=== PATIENT | male | born 1930 | race Caucasian/White ===

== ENCOUNTER 2017-02-22 12:39 | Inpatient (IN) | payer MEDICARE, OTHER ==
[2017-02-22] VITALS (13 sets, daily range): BP systolic 113–165; BP diastolic 41–121; PULSE 40–91; RESP 17–22; TEMP 97.2; Ht 160 cm; Wt 78.8 kg
[~2017-02-22] VITALS: Ht 160 cm; Wt 78.8 kg
[~2017-02-22 12:39] MED LIST: CARV3.1260 PO; CLON-379 PO; CLOP75TA19 PO; FERR-55 PO; ISOS30TA18 PO; LINA290C PO; LOSA50TA2 PO; METF500T4 PO; MEVA40 PO; NORC 5-325 PO; SITA100T8 PO; TERA10CA42 PO
[2017-02-22] MEDS ORDERED: ONDANSETRON 4 MG INJ ONE (12:43)
[2017-02-22] MEDS ORDERED: ONDANSETRON 4 MG INJ IV STA ×2 (12:47→14:08)
[2017-02-22] MEDS ORDERED: SOD CHLORIDE 0.9% 500 ML IV STA ×2 (12:56→14:16)
[2017-02-22] MEDS ORDERED: ASPIRIN 81 MG TAB PO ONE (13:00)
[2017-02-22] MEDS ORDERED: ATROPINE 1 MG INJ IV ONE ×2 (13:00→13:30)
[2017-02-22 13:08] LABS: ADD SCAN DIFF NO
[2017-02-22 13:11] LABS: BASOPHILS % 0.5 % (0.0-2.0); EOSINOPHILS # 0.2 10^3/ul (0.0-0.5); EOSINOPHILS % 2.4 % (0.0-7.0); HEMATOCRIT 26.7 % (42.0-52.0); HEMOGLOBIN 8.1 g/dl (14.0-18.0); LYMPHOCYTES # 3.3 10^3/ul (0.8-2.9); MEAN CORPUSCULAR HEMOGLOBIN 31.9 pg (29.0-33.0); MEAN CORPUSCULAR HGB CONC 30.3 g/dl (32.0-37.0); MEAN CORPUSCULAR VOLUME 105.1 fl (82.0-101.0); MEAN PLATELET VOLUME 12.1 fl (7.4-10.4); MONOCYTE # 0.6 10^3/ul (0.3-0.9); MONOCYTES % 8.2 % (0.0-11.0); NEUTROPHIL # 3.5 10^3/ul (1.6-7.5); NEUTROPHILS % 45.6 % (39.0-77.0); PLATELET COUNT 155 10^3/UL (140-415); RED BLOOD COUNT 2.54 10^6/ul (4.70-6.10); RED CELL DISTRIBUTION WIDTH 16.7 % (11.5-14.5); WHITE BLOOD COUNT 7.6 10^3/ul (4.8-10.8)
[2017-02-22] MEDS ORDERED: GLUCAGON 1 MG INJ IV STA (13:15)
[2017-02-22] MEDS ORDERED: GLUCAGON 1 MG INJ ONE (13:15)
[2017-02-22] MEDS ORDERED: ALLO300T2 PO (13:23)
[2017-02-22] MEDS ORDERED: METO5TAB11 PO (13:23)
[2017-02-22] MEDS ORDERED: FAMO40TA52 PO (13:24)
[2017-02-22] MEDS ORDERED: AMLO5TAB4 PO (13:24)
[2017-02-22] MEDS ORDERED: FURO40TA4 PO (13:24)
[2017-02-22] MEDS ORDERED: ISOS60TA PO (13:25)
[2017-02-22] MEDS ORDERED: OLME40TA14 PO (13:25)
[2017-02-22] MEDS ORDERED: DOCU100C PO (13:26)
[2017-02-22] MEDS ORDERED: CLOP75TA4 PO (13:28)
[2017-02-22] MEDS ORDERED: TAMS0.4C2 PO (13:28)
[2017-02-22] MEDS ORDERED: CARV12.579 PO (13:28)
[2017-02-22] MEDS ORDERED: LINA290C PO (13:29)
[2017-02-22] MEDS ORDERED: SITA1TAB5 PO (13:29)
[2017-02-22] MEDS ORDERED: INSU100I27 SQ (13:31)
[2017-02-22 13:32] LABS: INR 1.17; PT RATIO 1.2
[2017-02-22] MEDS ORDERED: OMEG1CAP2 PO (13:32)
[2017-02-22 13:34] LABS: ALANINE AMINOTRANSFERASE 23 IU/L (13-69); ALBUMIN 4.3 g/dl (3.3-4.9); ALBUMIN/GLOBULIN RATIO 0.81; ALKALINE PHOSPHATASE 76 IU/L (42-121); ANION GAP 18 (8-16); ASPARTATE AMINO TRANSFERASE 17 IU/L (15-46); BLOOD UREA NITROGEN 69 mg/dl (7-20); CALCIUM 8.7 mg/dl (8.4-10.2); CARBON DIOXIDE 14 mmol/L (21-31); CHLORIDE 113 mmol/L (97-110); CREATININE 3.57 mg/dl (0.61-1.24); GLUCOSE 230 mg/dl (70-220); SODIUM 137 mmol/L (135-144); TOTAL PROTEIN 9.6 g/dl (6.1-8.1)
[2017-02-22] MEDS ORDERED: POTA10TA97 PO (13:34)
[2017-02-22] MEDS ORDERED: FERROUS SULFATE 65MG PO (13:41)
[2017-02-22 13:42] LABS: POTASSIUM 8.4 mmol/L (3.5-5.1)
[2017-02-22 13:46] LABS: B-TYPE NATRIURETIC PEPTIDE 741 PG/ML (0-450)
[2017-02-22 13:48] LABS: TROPONIN-I < 0.012 ng/ml (0.00-0.12)
--- NOTE | 2017-02-22 13:49 | RADRPT ---
PROCEDURE: XR Chest. CLINICAL INDICATION: Chest pain. TECHNIQUE: Single frontal view. COMPARISON: 05/06/2012. FINDINGS: There is mild interstitial disease bilaterally consistent with pulmonary edema. The lungs are other ortiz clear. The heart is enlarged. There is an overlying defibrillator pad. There is no pleural effusion. There is no pneumothorax. IMPRESSION: 1. Pulmonary edema. 2. Cardiomegaly. 3. Otherwise unremarkable chest x-ray. RPTAT: QQ .Eduar Humphrey MD, MD Date Time Electronically viewed and signed by .Eduar Humphrey MD, MD on 02/22/2017 13:49 .R/
[2017-02-22] MEDS ORDERED: NA BICARBONATE 8.4% 50 ML SYG IV STA (13:54)
[2017-02-22] MEDS ORDERED: CA CHLORIDE 10% 10 ML SYRINGE IV STA (13:54)
[2017-02-22] MEDS ORDERED: INSULIN REGULAR, HUMAN 100 UNIT/1 ML 3ML VIAL IV STA (13:54)
[2017-02-22] MEDS ORDERED: DEXTROSE 50% 50 ML SYRINGE IV PRN ×3 (14:00→17:00)
--- NOTE | 2017-02-22 14:09 | RADRPT ---
PROCEDURE: XR Chest. CLINICAL INDICATION: Check line placement. TECHNIQUE: Single frontal view. COMPARISON: Prior study done earlier the same day. FINDINGS: There is a new right internal jugular vein catheter with the tip in the right brachiocephalic vein. Interstitial pulmonary edema is unchanged. The heart is enlarged. There is no pleural effusion. There is no pneumothorax. IMPRESSION: 1. Right IJ catheter tip in the right brachiocephalic vein. 2. Cardiomegaly. 3. No pneumothorax. RPTAT: QQ .Eduar Humphrey MD, MD Date Time Electronically viewed and signed by .Eduar Humphrey MD, MD on 02/22/2017 14:09 .R/
[2017-02-22] MEDS: NA POLYST SULFON 15 GM/60 ML BTL PO STA ×2 (14:15→14:20)
--- NOTE | 2017-02-22 14:42 | ERA ---
ER Documentation Chief Complaint Date/Time DATE: 02/22/17 TIME: 14:34 Chief Complaint HYPOTENSION, PALE, DIAPHORETIC HPI 86-year-old male who presents with hypotension, bradycardia from the field. Very limited history is provided. 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 It was noted that the patient was bradycardic to the 30s in the field with a blood pressure in the 60s. His family arrived later and noted that he had similar episode several months ago with elevated potassium of unclear etiology. Patient states compliance with medications. He does not take digoxin. Upon arrival the patient is diaphoretic, nauseated and hypotensive. Remainder of history is limited because the patient is critical. ROS All systems reviewed and are negative except as per history of present illness. Medications Home Meds Reported Medications [Ferrous Sulfate 65MG] No Conflict Check, 65 MG PO DAILY 02/22/17 Potassium Chloride (Klor-Con) 10 Meq Tablet.sa, 10 MEQ PO BID, TAB.SA 02/22/17 [place]-3 Acid Ethyl Esters (Lovaza) 1 Gm Capsule, 1 GM PO BID, CAP 02/22/17 Insulin Detemir (Levemir Flextouch) 100 Unit/1 Ml Insuln.pen, 0 SQ QPM TAKE 15-25 UNITS QPM,SLIDING SCALE 02/22/17 Linaclotide (LINZESS) 290 Mcg Capsule, 290 MCG PO DAILY, #30 CAP 02/22/17 Sitagliptin Phos/Metformin HCl (Janumet 50-1,000 mg Tablet) 1 Each Tablet, 1 EACH PO QHS, TAB 02/22/17 Clopidogrel Bisulfate* (Clopidogrel Bisulfate*) 75 Mg Tablet, 75 MG PO DAILY, # 30 TAB 02/22/17 Tamsulosin Hcl* (Tamsulosin Hcl*) 0.4 Mg Cap.er.24h, 0.4 MG PO DAILY, CAP 02/22/17 Carvedilol* (Carvedilol*) 12.5 Mg Tablet, 12.5 MG PO BID, #60 TAB 02/22/17 Docusate Sodium* (Stool Softener*) 100 Mg Capsule, 200 MG PO DAILY, CAP 02/22/17 Olmesartan Medoxomil (Benicar) 40 Mg Tablet, 40 MG PO DAILY, #30 TAB 02/22/17 Isosorbide Mononitrate* (Isosorbide Mononitrate*) 60 Mg Tab.er.24h, 60 MG PO DAILY, TAB 02/22/17 Furosemide* (Furosemide*) 40 Mg Tablet, 40 MG PO BID, TAB 02/22/17 Famotidine* (Famotidine*) 40 Mg Tablet, 40 MG PO HS, #30 TAB 02/22/17 Amlodipine Besylate* (Norvasc*) 5 Mg Tablet, 5 MG PO DAILY, TAB 02/22/17 Allopurinol* (Allopurinol*) 300 Mg Tablet, 300 MG PO DAILY, TAB 02/22/17 Metoclopramide Hcl* (Metoclopramide Hcl*) 5 Mg Tablet, 5 MG PO TID Y for NAUSEA AND/OR VOMITING, TAB 02/22/17 Discontinued Reported Medications Ferrous Sulfate* (Ferrous Sulfate*) 325 Mg Tablet, 325 MG PO DAILY 11/24/13 Hydrocodone Bit-Acetaminophen* ([place]*) 1 Tab Tab, 1 TAB PO BID, TAB 11/24/13 Terazosin Hcl* (Terazosin Hcl*) 10 Mg Capsule, 10 MG PO HS 11/24/13 Sitagliptin* (Januvia*) 100 Mg Tablet, 100 MG PO DAILY 11/24/13 Linaclotide (LINZESS) 290 Mcg Capsule, 290 MCG PO DAILY 11/24/13 Losartan Potassium* (Cozaar*) 50 Mg Tablet, 50 MG PO Q12 05/06/12 Isosorbide Dinitrate* (Isosorbide Dinitrate*) 30 Mg Tablet, 30 MG PO DAILY 05/06/12 Carvedilol* (Carvedilol*) 3.125 Mg Tablet, 3.125 MG PO BID 11/04/11 Metformin* (Glucophage*) 500 Mg Tab, 1 TAB PO BID, 0 Refills 11/04/11 Lovastatin (Lovastatin) 40 Mg Tablet, 1 TAB PO DAILY, 0 Refills 11/04/11 Clonidine Hcl* (Clonidine Hcl*) 0.1 Mg Tab, 0.3 MG PO Q8 11/04/11 Clopidogrel Bisulfate (Plavix) 75 Mg Tablet, 1 TAB PO DAILY, 0 Refills 11/04/11 Allergies Allergies: Coded Allergies: No Known Drug Allergies (Verified Allergy, Mild, 02/22/17) PMhx/Soc History of Surgery: Yes (stent 7 rs. ago rt. hernia repair 1 1/2 yr. agocataract removed 10yrs.ago) Anesthesia Reaction: No Hx Neurological Disorder: No Hx Respiratory Disorders: No Hx Cardiac Disorders: Yes (HTN STENT PLACEMENT) Hx Psychiatric Problems: No Hx Miscellaneous Medical Probl: Yes (ANEMIA, PARTIAL AMPUTATION RT. INDEX , HTN DM) Hx Alcohol Use: No Hx Substance Use: No Hx Tobacco Use: No Smoking Status: Never smoker FmHx Family History: No diabetes Physical Exam Vitals Vital Signs Date Time Temp Pulse Resp B/P Pulse Ox O2 Delivery O2 Flow Rate FiO2 02/22/17 14:21 70 22 122/75 100 Nasal Cannula 6.0 02/22/17 13:30 54 18 95/45 99 Nasal Cannula 3.0 02/22/17 13:20 54 18 92/47 99 Nasal Cannula 3.0 54 02/22/17 13:15 52 18 86/45 98 Nasal Cannula 3.0 02/22/17 13:10 60 18 80/43 98 Nasal Cannula 3.0 02/22/17 12:55 97.5 33 18 118/48 96 02/22/17 12:45 Nasal Cannula 3 Physical Exam General: Diaphoretic Head: Normocephalic, atraumatic. Eyes: Pupils equally reactive, EOM intact ENT: Moist mucous membranes Neck: Supple, no lymphadenopathy Respiratory: Lungs clear bilaterally, no distress Cardiovascular: Bradycardia, no murmurs, rubs, or gallops Abdominal: Soft, non-tender, non-distended, no peritoneal signs : Deferred MSK: No edema, no unilateral swelling, 5/5 strength Neurologic: Alert and oriented, moving all extremities, normal speech, no focal weakness, no cerebellar signs Skin: No rash Psych: Normal mood Result Diagram: 02/22/17 1540 02/22/17 1540 Results 24 hrs Laboratory Tests Test 02/22/17 12:35 02/22/17 13:05 02/22/17 15:40 White Blood Count 7.610^3/ul 10.210^3/ul Red Blood Count 2.5410^6/ul 2.6310^6/ul Hemoglobin 8.1g/dl 8.1g/dl Hematocrit 26.7% 27.7% Mean Corpuscular Volume 105.1fl 105.3fl Mean Corpuscular Hemoglobin 31.9pg 30.8pg Mean Corpuscular Hemoglobin Concent 30.3g/dl 29.2g/dl Red Cell Distribution Width 16.7% 16.9% Platelet Count 96794^3/UL 44933^3/UL Mean Platelet Volume 12.1fl 11.1fl Neutrophils % 45.6% 68.3% Lymphocytes % 43.0% 22.4% Monocytes % 8.2% 7.7% Eosinophils % 2.4% 0.9% Basophils % 0.5% 0.3% Nucleated Red Blood Cells % 0.0/100WBC 0.0/100WBC Neutrophils # 3.510^3/ul 7.010^3/ul Lymphocytes # 3.310^3/ul 2.310^3/ul Monocytes # 0.610^3/ul 0.810^3/ul Eosinophils # 0.210^3/ul 0.110^3/ul Basophils # 0.010^3/ul 0.010^3/ul Nucleated Red Blood Cells # 0.010^3/ul 0.010^3/ul Prothrombin Time 15.0Sec Prothrombin Time Ratio 1.2 INR International Normalized Ratio 1.17 Activated Partial Thromboplast Time 31.0Sec Sodium Level 137mmol/L 139mmol/L Potassium Level 8.4mmol/L 7.8mmol/L Chloride Level 113mmol/L 115mmol/L Carbon Dioxide Level 14mmol/L 16mmol/L Anion Gap 18 16 Blood Urea Nitrogen 69mg/dl 73mg/dl Creatinine 3.57mg/dl 3.27mg/dl Glucose Level 230mg/dl 125mg/dl Calcium Level 8.7mg/dl 9.4mg/dl Total Bilirubin 0.0mg/dl Direct Bilirubin 0.00mg/dl Indirect Bilirubin 0.0mg/dl Aspartate Amino Transf (AST/SGOT) 17IU/L Alanine Aminotransferase (ALT/SGPT) 23IU/L Alkaline Phosphatase 76IU/L Troponin I < 0.012ng/ml B-Type Natriuretic Peptide 741PG/ML Total Protein 9.6g/dl Albumin 4.3g/dl Globulin 5.30g/dl Albumin/Globulin Ratio 0.81 Bedside Glucose 208mg/dL Current Medications Medications (Trade) Dose Ordered Sig/Kelly Route PRN Reason Start Time Stop Time Status Last Admin Dose Admin Ondansetron HCl (Zofran Inj) 4 mg ONCE STAT IV 02/22/17 12:47 02/22/17 12:51 DC 02/22/17 13:01 Aspirin (Aspirin) 324 mg ONCE ONCE PO 02/22/17 13:00 02/22/17 13:01 DC 02/22/17 13:20 Atropine Sulfate 1 mg 1 mg ONCE ONCE IV 02/22/17 13:00 02/22/17 13:01 DC Sodium Chloride (NS) 500 ml @ 500 mls/hr Q1H STAT IV 02/22/17 12:56 02/22/17 13:55 DC 02/22/17 13:20 Atropine Sulfate (Atropine) 1 mg ONCE ONCE IV 02/22/17 13:30 02/22/17 13:31 DC Glucagon (Glucagen) 1 mg [facility] ONCE .ROUTE 02/22/17 13:15 02/22/17 13:16 DC Glucagon (Glucagen) 1 mg ONCE STAT IV 02/22/17 13:15 02/22/17 13:17 DC 02/22/17 13:18 Sodium Polystyrene Sulfonate (Kayexalate) 30 gm ONCE STAT PO 02/22/17 13:54 02/22/17 13:56 DC Sodium Bicarbonate (Na Bicarb 8.4% Syg) 50 ml ONCE STAT IV 02/22/17 13:54 02/22/17 13:56 DC 02/22/17 14:15 Calcium Chloride (Ca Chloride 10% Syg) 1,000 mg ONCE STAT IV 02/22/17 13:54 02/22/17 13:56 DC 02/22/17 14:03 Insulin Human Regular (Humulin R) 10 unit ONCE STAT IV 02/22/17 13:54 02/22/17 13:57 DC 02/22/17 14:15 Dextrose (D50w Syringe) ONCE PRN IV POC BLOOD GLUCOSE <250 MG/DL 02/22/17 14:00 02/22/17 14:11 Ondansetron HCl 4 mg 4 mg ONCE STAT IV 02/22/17 14:08 02/22/17 14:10 DC Sodium Chloride (NS) 500 ml @ 500 mls/hr Q1H STAT IV 02/22/17 14:16 02/22/17 15:15 DC 02/22/17 14:20 IV Flush (NS 3 ml) 3 ml PER PROTOCOL IV 02/22/17 16:00 Ondansetron HCl (Zofran Inj) 4 mg Q6H PRN IV NAUSEA AND/OR VOMITING 02/22/17 16:00 02/22/17 16:39 DC Acetaminophen (Tylenol Tab) 650 mg Q6H PRN PO PAIN LEVEL 1-3 OR FEVER 02/22/17 16:00 02/22/17 16:39 DC Pantoprazole (Protonix Tab) 40 mg DAILY@06 PO 02/23/17 06:00 02/23/17 06:00 DC Lidocaine (Lidocaine 2% Urojet) 20 ml ONCE ONCE MM 02/22/17 16:00 02/22/17 16:01 DC Furosemide (Lasix) 80 mg ONCE ONCE IV 02/22/17 16:30 02/22/17 16:31 DC 02/22/17 16:40 IV Flush (NS 3 ml) 3 ml PER PROTOCOL IV 02/22/17 16:30 Ondansetron HCl (Zofran Inj) 4 mg Q6H PRN IV NAUSEA AND/OR VOMITING 02/22/17 16:30 Acetaminophen (Tylenol Tab) 650 mg Q6H PRN PO PAIN LEVEL 1-3 OR FEVER 02/22/17 16:30 Acetaminophen/ Hydrocodone Bitart ([place] (5/325)) 1 tab Q6H PRN PO MODERATE PAIN LEVEL 4-6 02/22/17 16:30 Morphine Sulfate (morphine) 2 mg Q4H PRN IV SEVERE PAIN LEVEL 7-10 02/22/17 16:30 Docusate Sodium (Colace) 100 mg Q12H PRN PO CONSTIPATION 02/22/17 16:30 Magnesium Hydroxide (Milk Of Mag) 30 ml DAILY PRN PO CONSTIPATION 02/22/17 16:30 Sodium Biphosphate/ Sodium Phosphate (Fleet Enema) 133 ml DAILY PRN [place] CONSTIPATION 02/22/17 16:30 Insulin Aspart (Novolog Insulin Pen) NOVOLOG *MILD* ALGORI... Q4 SC 02/22/17 17:00 Miscellaneous Information (* Miscellaneous Pharmacy Order) HYPOGLYCEMIA PROTOCOL w... ONCE ONCE XX 02/22/17 16:30 02/22/17 16:40 DC Miscellaneous Information (* Miscellaneous Pharmacy Order) Discontinue Glyburide, Glipizide,... ONCE ONCE XX 02/22/17 16:30 02/22/17 16:40 DC Miscellaneous Information (* Miscellaneous Pharmacy Order) Discontinue all previ... ONCE ONCE XX 02/22/17 16:30 02/22/17 16:40 DC Amlodipine Besylate (Norvasc) 5 mg DAILY PO 02/23/17 09:00 02/23/17 09:00 DC Carvedilol (Coreg) 12.5 mg BID PO 02/22/17 21:00 02/22/17 21:00 DC Clopidogrel Bisulfate (plaVIX) 75 mg DAILY PO 02/23/17 09:00 Famotidine (Pepcid) 40 mg HS PO 02/22/17 21:00 02/22/17 21:00 DC Isosorbide Mononitrate (Imdur) 60 mg DAILY PO 02/23/17 09:00 02/23/17 09:00 DC Famotidine (Pepcid Iv) 20 mg DAILY IV 02/22/17 17:00 Miscellaneous Information 1 ea NOTE XX 02/22/17 17:00 Glucose (Glutose) 15 gm Q15M PRN PO DECREASED GLUCOSE 02/22/17 17:00 Glucose (Glutose) 22.5 gm Q15M PRN PO DECREASED GLUCOSE 02/22/17 17:00 Dextrose (D50w Syringe) 25 ml Q15M PRN IV DECREASED GLUCOSE 02/22/17 17:00 Dextrose (D50w Syringe) 50 ml Q15M PRN IV DECREASED GLUCOSE 02/22/17 17:00 Glucagon (Glucagen) 1 mg Q15M PRN IM DECREASED GLUCOSE 02/22/17 17:00 Glucose (Glutose) 15 gm Q15M PRN BUCCAL DECREASED GLUCOSE 02/22/17 17:00 Procedures/MDM EKG, MONITORS, & DIAGNOSTIC IMAGING: EKG #1 EKG: I reviewed and interpreted a 12-lead EKG. Rhythm: Junctional bradycardia Ectopy: None Intervals: No abnormalities ST segments: No elevations or depressions T waves: No contiguous inversions EKG #2 EKG: I reviewed and interpreted a 12-lead EKG. Rhythm: Junctional bradycardia Ectopy: None Intervals: No abnormalities ST segments: No elevations or depressions T waves: No contiguous inversions Chest x-ray: I reviewed and interpreted a 1 view of the chest Mediastinum: No enlargement Cardiac silhouette: cardiomegaly Airspace: Interstitial process bilaterally Bones: No evidence of fracture Chest x-ray #2 Chest x-ray: I reviewed and interpreted a 1 view of the chest Mediastinum: No enlargement Cardiac silhouette: cardiomegaly Airspace: Interstitial process bilaterally, triple-lumen catheter in good position Bones: No evidence of fracture PROCEDURES: Central Line Note: Consent: I had a discussion with the patient and family regarding the procedure and discussed risks, benefits, alternatives. They have given verbal informed consent and a document was signed and placed in the chart. Indication: Critically ill patient requiring specialized vascular access for fluid or pressor management Location: Right IJ Procedure: Sterile procedure was observed throughout insertion of the central line. The insertion site was prepped with sterile solution. Ultrasound-guided identification of the vein was performed. Insertion of a needle into the vein was obtained with return of dark, nonpulsatile blood. The wire was then threaded through the needle without complication. The wire was then identified within the vein using ultrasound. A small skin incision was made, the needle was removed intact, dilation of the vein was performed and insertion of a triple lumen catheter was completed. The catheter was then sutured to the skin. All 3 ports devaughn back and flushed without difficulty. A sterile dressing was applied. The patient tolerated the procedure well there were no complications. Emergency Bedside Ultrasound: The patient was verbally consented prior to procedure and understands the risks , benefits, and alternatives. The patient is agreeable to procedure and has given verbal consent. Indication: Central line Probe Type: Linear Findings: Dynamic ultrasound utilizing compressive technique with both linear and horizontal views, additional images showing wire within the venous system were obtained. The images were saved along with patient information on a paper chart to be scanned into EMR. The patient tolerated the procedure well and there were no complications. A post-line chest x-ray was ordered as indicated. LAB INTERPRETATION: Hyperkalemia, uremia, anemia MEDICAL DECISION MAKING: The patient presents to the emergency room with symptomatic bradycardia and hypotension. Broad differential that includes beta-lian toxicity, intrinsic cardiac ischemia, hyperkalemia among others. The patient will benefit from aggressive resuscitation efforts and likely reversal. ER COURSE: Upon arrival the patient had blood pressure in the 1 teens but rapidly dropped. 2 rounds of atropine were attempted with minimal improvement. The patient was given glucagon with minimal improvement. The patient remained hypotensive. A triple-lumen catheter was placed to initiate dopamine however the patient's blood pressure stabilized. Potassium resulted at 8. For this reason calcium, bicarb, insulin, dextrose, Kayexalate provided. Nephrology was paged. An initial conversation with Dr. Parker occurred because of the patient's symptomatic bradycardia for consideration of Supervisor Telephone Information versus pacemaker. He states that the patient would benefit from medical management at this point. Continue to monitor. If needed the on-call cardiology team can be notified for pacemaker placement. The patient has since stabilized after calcium and hyperkalemia treatment was initiated. The patient does not take digoxin. The patient's heart rate is in the 50s and blood pressure in the 1 teens. He has not required dopamine. He has not required transcutaneous pacing or transvenous pacing. A triple-lumen catheter was placed as documented above. The patient's hyperkalemia may correct with gentle fluid though the patient does have some mild evidence of pulmonary edema. Gentle hydration initiated. Nephrology consult for potential for semiurgent dialysis. Dr. Burt was kind enough to come to the patient's bedside and evaluate the patient. He feels given the complexity of the situation he recommends emergent dialysis. Dr. Terviño was consulted and kind enough to come to the bedside and place a Ashvin catheter. The patient also had a Alcantara catheter with minimal output no evidence of obstructive uropathy. The patient has been somewhat defiant and occasionally refusing care however with the family member at the bedside he has been more appropriate and directable. Based on thorough conversations multiple family members as well as the patient the patient is a full code, aggressive care recommended. Patient is agreeable to dialysis. Emergent dialysis being arranged. The patient's repeat potassium is still elevated. He refused Kayexalate. Further calcium dosing initiated. His bradycardia and hypotension have resolved. Awaiting ICU bed currently. I kept the patient and/or family informed of laboratory and diagnostic imaging results throughout the emergency room course. DISPOSITION PLAN: Intensive care unit management of symptomatic bradycardia CONSULTATION: Accepting care team and consultations: I discussed the current laboratory data, diagnostic imaging and emergency care provided. Admitting team: Dr. Ivey Admitting team indication: Insurance directed, primary care physician recommended admission to hospitalist team. Consulting services: Nephrology Dr. Burt, vascular surgery Dr. Treviño Critical Care Note: Total time: 62 minutes Indication/Organ System Threat: Symptomatic bradycardia, hyperkalemia, acute renal failure I spent the above amount of critical care time with the patient, not including billable procedures. This included chart review, consultations, repeat bedside evaluations, and titration of appropriate medications to prevent cardiopulmonary or respiratory collapse. Departure Diagnosis: Primary Impression: Symptomatic bradycardia Additional Impressions: Hyperkalemia Acute renal failure Qualified Code: N17.9 - Acute renal failure, unspecified acute renal failure type Metabolic acidosis Condition: Critical JAIME WILEY MD Feb 22, 2017 14:41
[2017-02-22] MEDS ORDERED: NACL 0.9% 3 ML SYG IV SCH ×2 (16:00→16:30)
[2017-02-22] MEDS ORDERED: LIDOCAINE 2% 20 ML UROJET SYRINGE MM ONE (16:00)
[2017-02-22] MEDS ORDERED: ACETAMINOPHEN 325 MG TAB PO PRN ×2 (16:00→16:30)
[2017-02-22] MEDS ORDERED: ONDANSETRON 4 MG INJ IV PRN ×2 (16:00→16:30)
--- NOTE | 2017-02-22 16:07 | CONS ---
Date/Time of Note Date/Time of Note DATE: 02/22/17 TIME: 15:51 Assessment/Plan Assessment/Plan Problems: (1) Syncope and collapse Comment: probable hyperkalmia induced jillian/respiratory failure (2) CHF (congestive heart failure) Status: Chronic Comment: treat with dialysis for now given concurrent renal failure Qualifiers: (3) Diabetes mellitus Status: Chronic Comment: Management with sliding scale per hospitalist Qualifiers: (4) Hyperkalemia Status: Chronic Comment: chf, probable sleep apnea, copd? Stat dialysis (5) Hypoxemia (6) Metabolic acidemia (7) Anemia Qualifiers: (8) BPH (benign prostatic hyperplasia) Comment: check for residual and renal ultrasound needed (9) [id number] renal failure Consultation Date/Type/Reason Admit Date/Time February 22, 2017 Date of Consultation: Feb 22, 2017 Type of Consultation: Renal Hx of Present Illness 86 Persian speaking male with syncope, brought in hypotensive and bradycardic and hypoxic to ER. Labs noted below with hyperkalemia, metabolic acidosis, and probable acute on chronic renal failure and associated anemia. CXR with cor bovinum and chf and emergent dialysis ordered. I spoke with son as patient is confused and agrees with treatment and full code until see direction health will be taking. Patient in ER treated with kayex, atropine, bicarb, glucose and insulin and will be transferred to icu for care. He was hospitalized at [facility] and apparently refused medical follow up when he presented with hyperkalemia about one month ago per son. He is on numerous card meds including coreg, isodrdil, plavix, lasix, potassium and reglan with insulin in addition. Patient is not oriented or alert and intermittently follows commands and refuses abg requested. Social History Smoking Status: Never smoker Exam/Review of Systems Vital Signs Vitals Vital Signs Date Time Temp Pulse Resp B/P Pulse Ox O2 Delivery O2 Flow Rate FiO2 02/22/17 14:21 70 22 122/75 100 Nasal Cannula 6.0 02/22/17 12:55 97.5 Exam Constitutional: non-verbal Psych: confusion Head: normocephalic Eyes: nl conjunctiva Neck: other (large neck ), supple Respiratory: clear to auscultation Cardiovascular: other (no rub), regular rate and rhythm Gastrointestinal: distended Extremities: other (no edema) Neurological: PROGRAM SPECIALIST II-XII intact, confused Results Result Diagram: 02/22/17 1235 02/22/17 1235 Results 24 hrs Laboratory Tests Test 02/22/17 12:35 02/22/17 13:05 White Blood Count 7.6 Red Blood Count 2.54 L Hemoglobin 8.1 L Hematocrit 26.7 L Mean Corpuscular Volume 105.1 H Mean Corpuscular Hemoglobin 31.9 Mean Corpuscular Hemoglobin Concent 30.3 L Red Cell Distribution Width 16.7 H Platelet Count 155 Mean Platelet Volume 12.1 H Neutrophils % 45.6 Lymphocytes % 43.0 Monocytes % 8.2 Eosinophils % 2.4 Basophils % 0.5 Nucleated Red Blood Cells % 0.0 Neutrophils # 3.5 Lymphocytes # 3.3 H Monocytes # 0.6 Eosinophils # 0.2 Basophils # 0.0 Nucleated Red Blood Cells # 0.0 Prothrombin Time 15.0 H Prothrombin Time Ratio 1.2 INR International Normalized Ratio 1.17 Activated Partial Thromboplast Time 31.0 Sodium Level 137 Potassium Level 8.4 *H Chloride Level 113 H Carbon Dioxide Level 14 L Anion Gap 18 H Blood Urea Nitrogen 69 H Creatinine 3.57 H Glucose Level 230 H Calcium Level 8.7 Total Bilirubin 0.0 L Direct Bilirubin 0.00 Indirect Bilirubin 0.0 Aspartate Amino Transf (AST/SGOT) 17 Alanine Aminotransferase (ALT/SGPT) 23 Alkaline Phosphatase 76 Troponin I < 0.012 B-Type Natriuretic Peptide 741 H Total Protein 9.6 H Albumin 4.3 Globulin 5.30 H Albumin/Globulin Ratio 0.81 Bedside Glucose 208 Medications Medications Current Medications Dextrose (D50w Syringe) ONCE PRN IV POC BLOOD GLUCOSE <250 MG/DL Last administered on 02/22/17t 14:11; Admin Dose 50 ML; Start 02/22/17 at 14:00 MALORIE BACH MD Feb 22, 2017 16:03
[2017-02-22] MEDS ORDERED: FUROSEMIDE 40 MG INJ IV ONE (16:30)
[2017-02-22] MEDS ORDERED: HYDROCODONE/APAP (5/325) TAB PO PRN (16:30)
[2017-02-22] MEDS ORDERED: morphine 2 MG INJ IV PRN (16:30)
[2017-02-22] MEDS ORDERED: NA PHOSPHATE/BIPHOS 133 ML ENEMA PR PRN (16:30)
[2017-02-22] MEDS ORDERED: MAGNESIUM HYDROXIDE 30ML CUP PO PRN (16:30)
[2017-02-22] MEDS ORDERED: DOCUSATE SODIUM 100 MG CAP PO PRN (16:30)
[2017-02-22 16:37] LABS: ADD SCAN DIFF NO
[2017-02-22 16:40] LABS: BASOPHILS % 0.3 % (0.0-2.0); EOSINOPHILS # 0.1 10^3/ul (0.0-0.5); EOSINOPHILS % 0.9 % (0.0-7.0); HEMATOCRIT 27.7 % (42.0-52.0); HEMOGLOBIN 8.1 g/dl (14.0-18.0); LYMPHOCYTES # 2.3 10^3/ul (0.8-2.9); LYMPHOCYTES % 22.4 % (15.0-51.0); MEAN CORPUSCULAR HEMOGLOBIN 30.8 pg (29.0-33.0); MEAN CORPUSCULAR HGB CONC 29.2 g/dl (32.0-37.0); MEAN CORPUSCULAR VOLUME 105.3 fl (82.0-101.0); MEAN PLATELET VOLUME 11.1 fl (7.4-10.4); MONOCYTE # 0.8 10^3/ul (0.3-0.9); MONOCYTES % 7.7 % (0.0-11.0); NEUTROPHILS % 68.3 % (39.0-77.0); PLATELET COUNT 143 10^3/UL (140-415); RED BLOOD COUNT 2.63 10^6/ul (4.70-6.10); RED CELL DISTRIBUTION WIDTH 16.9 % (11.5-14.5); WHITE BLOOD COUNT 10.2 10^3/ul (4.8-10.8)
--- NOTE | 2017-02-22 16:43 | RADRPT ---
PROCEDURE: Renal US. CLINICAL INDICATION: Acute kidney disease TECHNIQUE: Multiple sonographic images of the kidneys were obtained. The images were reviewed on a PACS workstation. COMPARISON: No prior studies are available for comparison. FINDINGS: The kidneys are well visualized. The right kidney measures 9.8 cm. The left kidney measures 9.9 cm. There is no evidence of hydronephrosis. The renal cortices are echogenic suggesting medical renal d isease. the bladder is not well distended but grossly unremarkable. Incidental note is made of gallstones within a nondistended gallbladder. IMPRESSION: 1. The renal cortices are echogenic suggesting chronic medical renal disease. There is no evidence of hydronephrosis or mass. 2. Incidental note is made of cholelithiasis. RPTAT:AAJJ Physician Keon Date Time Electronically viewed and signed by Physician Keon on 02/22/2017 16:43 /
[2017-02-22] MEDS: INSULIN ASPART [NOVOLOG] 3 ML PEN SC SCH ×2 (17:00→20:56)
[2017-02-22] MEDS ORDERED: GLUCOSE GEL 15 GRAM TUBE BUCCAL PRN (17:00)
[2017-02-22] MEDS ORDERED: GLUCAGON 1 MG INJ IM PRN (17:00)
[2017-02-22] MEDS ORDERED: GLUCOSE GEL 15 GRAM TUBE PO PRN ×2 (17:00)
[2017-02-22 17:01] LABS: CALCIUM 9.4 mg/dl (8.4-10.2); CREATININE 3.27 mg/dl (0.61-1.24)
[2017-02-22 17:06] LABS: POTASSIUM 7.8 mmol/L (3.5-5.1)
[2017-02-22 17:12] LABS: ADD UMIC NO; UR ASCORBIC ACID NEGATIVE (NEGATIVE); UR BACTERIA FEW /HPF (NONE SEEN); UR BILIRUBIN (Dip) NEGATIVE (NEGATIVE); UR BLOOD (Dip) NEGATIVE (NEGATIVE); UR CLARITY SLIGHTLY CLOUDY (CLEAR); UR COLOR YELLOW (YELLOW); UR GLUCOSE (Dip) NEGATIVE (NEGATIVE); UR KETONES (Dip) NEGATIVE (NEGATIVE); UR LEUKOCYTE ESTERASE (Dip) NEGATIVE Leu/ul (NEGATIVE); UR MUCUS FEW /HPF (NONE SEEN); UR NITRITE (Dip) NEGATIVE (NEGATIVE); UR RBC 1 /HPF (0-5); UR SPECIFIC GRAVITY (Dip) 1.009 (1.003-1.030); UR TOTAL PROTEIN (Dip) NEGATIVE (NEGATIVE); UR UROBILINOGEN (Dip) NEGATIVE (NEGATIVE)
[2017-02-22] MEDS: FAMOTIDINE 20 MG INJ IV SCH (17:18)
--- NOTE | 2017-02-22 17:19 | OPR ---
Date/Time of Note Date/Time of Note DATE: 02/22/17 TIME: 17:17 Operative Report Procedure Date: Feb 22, 2017 Preoperative Diagnosis Renal failure Postoperative Diagnosis Renal failure Operation Performed Right femoral hemodialysis catheter placement Surgeon: MEDARDO CALDERON MD Anesthesia: other Complications: None Pt Condition Post Procedure: stable Operative\Procedure Findings Patient was placed in supine position prepped and draped in usual sterile fashion access was gained in the right common femoral vein guidewire was advanced through without any difficulties subcutaneous tissues were dilated 20 cm dialysis catheter was advanced over a guidewire secured to skin using silk sutures both ports of the catheter were aspirated and injected using saline solution appropriate dressings applied patient tolerated procedure well MEDARDO CALDERON MD Feb 22, 2017 17:19
[2017-02-22] MEDS ORDERED: CALCIUM GLUCONATE 10% 1 GM in SOD CHLORIDE 0.9% 100 ML IVPB ONE (17:30)
[2017-02-22] MEDS: LORAZEPAM 2 MG INJ IV ONE ×2 (19:05→19:11)
[2017-02-22 19:34] LABS: CREATINE KINASE 35 IU/L (23-200)
--- NOTE | 2017-02-22 19:49 | HP ---
Date/Time of Note Date/Time of Note DATE: 02/22/17 TIME: 19:35 Assessment/Plan VTE Prophylaxis VTE Prophylaxis Intervention: SCD's Lines/Catheters IV [facility]from [facility] [place] Assessment/Plan Chief Complaint/Hosp Course Assessment and plan: 86-year-old male coming in syncope, with severe hyperkalemia, severe bradycardia, renal failure, metabolic acidosis. 1. Syncope: Likely secondary to patient's severe hyperkalemia and bradycardia. - Admit patient to ICU, check TSH A1c lipid panel. Patient has Alen started treatment in the ER for his hyperkalemia and bradycardia. He did get 1 round of atropine. We will get an echocardiogram as well and get a cardiology consult. 2. Renal failure: Appreciate renal consult -Patient will start dialysis emergently, follow renal recommendations 3. Diabetes: Check A1c, start sliding scale insulin 4. BPH: Apparently renal ultrasound has been ordered follow this up 5. CHF: Again check echocardiogram, apparently patient had stent placement in the past, so continue Plavix 6. DJD: Continue current pain medications as needed 7. GI prophylaxis: H2 lian 8. DVT prophylaxis: SCD's Problems: HPI/ROS Admit Date/Time Admit Date/Time February 22, 2017 Hx of Present Illness 86 Kyrgyz speaking male past medical history of degenerative joint disease, type 1 diabetes, essential hypertension, gastric lymphoma, anemia, BPH, CHF who presents with syncope. In the ER patient today was found to be hypotensive and bradycardic and hypoxic, along with severe metabolic acidosis. Full review of systems cannot be obtained at this time because the patient is not able to provide this, he was somewhat combative in the ER, and because of language barrier, and also family is not around presently. Most of the information is obtained from the ER documentation. His potassium was also severely elevated 8.4, he was given ER treated with kayexate, atropine, bicarb, glucose and insulin and will be transferred to icu. Kidney doctor was consulted as well and patient received Ashvin catheter for emergent dialysis to be started later today. Apparently the patient was hospitalized at [facility] and apparently refused medical follow up when he presented with hyperkalemia about one month ago per son. He is on numerous card meds including coreg, isodrdil, plavix, lasix, potassium and reglan with insulin in addition. ROS Psychological: confusion PMH/Family/Social Past Surgical History Past Surgical Hx: other (stent 7 rs. ago rt. hernia repair 1 1/2 yr. agocataract removed 10yrs ago) Family History Significant Family History: no pertinent family hx Social History Alcohol Use: none Smoking Status: Never smoker Drug Use: none Exam/Review of Systems Vital Signs Vitals Vital Signs Date Time Temp Pulse Resp B/P Pulse Ox O2 Delivery O2 Flow Rate FiO2 02/22/17 18:42 97.5 60 22 139/56 97 Nasal Cannula 2.0 Exam Exam General: Diaphoretic, lying in bed, in mild distress Head: Normocephalic, atraumatic. Eyes: Pupils equally reactive, EOM intact ENT: Moist mucous membranes Neck: Supple, no lymphadenopathy Respiratory: Lungs clear bilaterally, no distress Cardiovascular: Bradycardia, no murmurs, rubs, or gallops Abdominal: Soft, non-tender, non-distended, no peritoneal signs MSK: No edema, no unilateral swelling, 5/5 strength Neurologic: Alert and oriented, moving all extremities, normal speech, no focal weakness, no cerebellar signs Labs Result Diagram: 02/22/17 1540 02/22/17 1540 Medications Medications Current Medications Dextrose (D50w Syringe) ONCE PRN IV POC BLOOD GLUCOSE <250 MG/DL Last administered on 02/22/17t 14:11; Admin Dose 50 ML; Start 02/22/17 at 14:00 Ondansetron HCl (Zofran Inj) 4 mg Q6H PRN IV NAUSEA AND/OR VOMITING; Start 02/22 at 16:30 Acetaminophen (Tylenol Tab) 650 mg Q6H PRN PO PAIN LEVEL 1-3 OR FEVER; Start at 16:30 Acetaminophen/ Hydrocodone Bitart ([place] (5/325)) 1 tab Q6H PRN PO MODERATE PAIN LEVEL 4-6; Start 02/22/17 at 16:30 Morphine Sulfate (morphine) 2 mg Q4H PRN IV SEVERE PAIN LEVEL 7-10; Start at 16:30 Docusate Sodium (Colace) 100 mg Q12H PRN PO CONSTIPATION; Start 02/22/17 at 16: 30 Magnesium Hydroxide (Milk Of Mag) 30 ml DAILY PRN PO CONSTIPATION; Start at 16:30 Sodium Biphosphate/ Sodium Phosphate (Fleet Enema) 133 ml DAILY PRN [place] CONSTIPATION; Start 02/22/17 at 16:30 Insulin Aspart (Novolog Insulin Pen) NOVOLOG *MILD* ALGORI... Q4 SC ; Start 02/22 at 17:00 Clopidogrel Bisulfate (plaVIX) 75 mg DAILY PO ; Start 02/23/17 at 09:00 Famotidine (Pepcid Iv) 20 mg DAILY IV Last administered on 02/22/17t 17:18; Admin Dose 20 MG; Start 02/22/17 at 17:00 Miscellaneous Information 1 ea NOTE XX ; Start 02/22/17 at 17:00 Glucose (Glutose) 15 gm Q15M PRN PO DECREASED GLUCOSE; Start 02/22/17 at 17:00 Glucose (Glutose) 22.5 gm Q15M PRN PO DECREASED GLUCOSE; Start 02/22/17 at 17:00 Dextrose (D50w Syringe) 25 ml Q15M PRN IV DECREASED GLUCOSE; Start 02/22/17 at 17:00 Dextrose (D50w Syringe) 50 ml Q15M PRN IV DECREASED GLUCOSE; Start 02/22/17 at 17:00 Glucagon (Glucagen) 1 mg Q15M PRN IM DECREASED GLUCOSE; Start 02/22/17 at 17:00 Glucose (Glutose) 15 gm Q15M PRN BUCCAL DECREASED GLUCOSE; Start 02/22/17 at 17: 00 BASILIO TRUJILLO Feb 22, 2017 19:45
[2017-02-22 19:59] LABS: CK-MB 0.87 ng/ml (0.0-2.4); TROPONIN-I < 0.012 ng/ml (0.00-0.12)
[2017-02-22] MEDS ORDERED: FAMOTIDINE 20 MG TAB PO SCH (21:00)
[2017-02-22 23:37] LABS: CALCIUM 9.4 mg/dl (8.4-10.2); CREATININE 2.82 mg/dl (0.61-1.24)
[2017-02-22 23:46] LABS: POTASSIUM 7.7 mmol/L (3.5-5.1)
[2017-02-23] VITALS (35 sets, daily range): BP systolic 80–155; BP diastolic 42–80; PULSE 54–124; RESP 13–26
[2017-02-23] MEDS ORDERED: INSULIN REGULAR 10 ML INJ IV ONE (00:30)
[2017-02-23] MEDS ORDERED: NA POLYST SULFON 15 GM/60 ML BTL PO ONE (00:30)
[2017-02-23] MEDS ORDERED: DEXTROSE 50% 50 ML SYRINGE IV ONE (00:30)
[2017-02-23] MEDS ORDERED: ALBUTEROL 0.083% (NEB) 2.5 MG/3 ML AMP HHN PRN (01:00)
[2017-02-23] MEDS ORDERED: ALBUTEROL 0.083% (NEB) 2.5 MG/3 ML AMP HHN SCH (01:00)
[2017-02-23] MEDS: INSULIN ASPART [NOVOLOG] 3 ML PEN SC SCH ×6 (01:00→21:00)
[2017-02-23 02:27] LABS: CREATINE KINASE 45 IU/L (23-200)
[2017-02-23 02:50] LABS: CK-MB 0.85 ng/ml (0.0-2.4); TROPONIN-I < 0.012 ng/ml (0.00-0.12)
[2017-02-23 04:16] LABS: ADD SCAN DIFF NO
[2017-02-23 04:19] LABS: BASOPHILS % 0.5 % (0.0-2.0); EOSINOPHILS % 0.5 % (0.0-7.0); HEMOGLOBIN 8.2 g/dl (14.0-18.0); LYMPHOCYTES # 1.1 10^3/ul (0.8-2.9); LYMPHOCYTES % 17.3 % (15.0-51.0); MEAN CORPUSCULAR HEMOGLOBIN 31.2 pg (29.0-33.0); MEAN CORPUSCULAR HGB CONC 30.4 g/dl (32.0-37.0); MEAN CORPUSCULAR VOLUME 102.7 fl (82.0-101.0); MEAN PLATELET VOLUME 12.1 fl (7.4-10.4); MONOCYTE # 0.5 10^3/ul (0.3-0.9); MONOCYTES % 8.2 % (0.0-11.0); NEUTROPHIL # 4.7 10^3/ul (1.6-7.5); PLATELET COUNT 133 10^3/UL (140-415); RED BLOOD COUNT 2.63 10^6/ul (4.70-6.10); RED CELL DISTRIBUTION WIDTH 16.6 % (11.5-14.5); WHITE BLOOD COUNT 6.4 10^3/ul (4.8-10.8)
[2017-02-23 04:43] LABS: CHOL/HDL RATIO 4.8 RATIO
[2017-02-23 04:44] LABS: ALBUMIN 4.4 g/dl (3.3-4.9); ALBUMIN/GLOBULIN RATIO 0.8; BILIRUBIN,INDIRECT 0.1 mg/dl (0-1.1); BILIRUBIN,TOTAL 0.1 mg/dl (0.2-1.3); CALCIUM 9.6 mg/dl (8.4-10.2); CREATININE 3.26 mg/dl (0.61-1.24); TOTAL PROTEIN 9.9 g/dl (6.1-8.1)
[2017-02-23 04:45] LABS: MAGNESIUM 1.4 mg/dl (1.7-2.5); PHOSPHORUS 3.6 mg/dl (2.5-4.9)
[2017-02-23 05:11] LABS: POTASSIUM 6.5 mmol/L (3.5-5.1)
[2017-02-23 05:15] LABS: THYROID STIMULATING HORMONE 1.6 MIU/L (0.465-4.680)
[2017-02-23] MEDS ORDERED: PANTOPRAZOLE (EC) 40 MG TAB PO SCH (06:00)
[2017-02-23] MEDS ORDERED: MAGNESIUM SULFATE 2 GM/50 ML 50 ML IVPB ONE (06:30)
[2017-02-23] MEDS ORDERED: ALBUMIN HUMAN 25% 100 ML ONE (08:44)
[2017-02-23] MEDS ORDERED: ALBUMIN HUMAN 25% 100 ML IV ONE (09:00)
[2017-02-23] MEDS ORDERED: AMLODIPINE 5 MG TAB PO SCH (09:00)
[2017-02-23] MEDS ORDERED: ISOSORBIDE MONONITRATE(SR)60 MG TAB PO SCH (09:00)
--- NOTE | 2017-02-23 09:11 | CONS ---
Date/Time of Note Date/Time of Note DATE: 02/23/17 TIME: 08:47 Assessment/Plan Assessment/Plan Chief Complaint/Hosp Course 86 Maori speaking male with syncope, brought in hypotensive and bradycardic and hypoxic to ER. Labs noted below with hyperkalemia, metabolic acidosis, and probable acute on chronic renal failure and associated anemia. CXR with cor bovinum and chf and emergent dialysis ordered. I spoke with son as patient is confused and agrees with treatment and full code until see direction health will be taking. Patient in ER treated with kayex, atropine, bicarb, glucose and insulin and will be transferred to icu for care. He was hospitalized at [facility] and apparently refused medical follow up when he presented with hyperkalemia about one month ago per son. He is on numerous card meds including coreg, isodrdil, plavix, lasix, potassium and reglan with insulin in addition. 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 It is probably contributing to anemia and may need procrit. Additional Assessment/Plan When a bit more steady state, decision about further dialysis to be made. If affirmative then pursing myeloma follow worthwhile. If refuses and renal function doesn't improve and can't be managed with meds then hospice or palliative care indicated. 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 He has a Cards Dr. Albright who apparently stented him in last several months. Today he is less sob and feels better. Son states his speech is not quite as clear. He had 3k fluid removed with dialysis. He is receiving his second dialysis today and case discussed with Dr. Trujillo and Elena, Kalani. It is unclear if he will put up with chronic dialysis and in next couple days the mental state should level off. He is not in pain at present and not feeling as weak. Constitutional: no complaints Detailed Summary Eyes: no complaints ENT: other (hard of hearing) Cardiovascular: no complaints Gastrointestinal: no complaints Neurologic: confusion, no complaints, other Exam/Review of Systems Vital Signs Vitals Vital Signs Date Time Temp Pulse Resp B/P Pulse Ox O2 Delivery O2 Flow Rate FiO2 02/23/17 06:00 79 17 104/53 99 Nasal Cannula 3.0 02/23/17 04:00 98.4 02/22/17 19:45 30 Intake and Output 02/22/17 02/22/17 02/23/17 15:00 23:00 07:00 Intake Total 300 ml Output Total 3300 ml 150 ml Balance -3000 ml -150 ml Exam Neck: supple Respiratory: clear to auscultation Cardiovascular: other (tachy), regular rate and rhythm Gastrointestinal: soft Neurological: [employer] II-XII intact, nl strength Results Result Diagram: 02/23/17 0405 02/23/17 0405 Results 24 hrs Laboratory Tests Test 02/22/17 12:35 02/22/17 12:50 02/22/17 13:05 02/22/17 15:40 White Blood Count 7.6 10.2 # Red Blood Count 2.54 L 2.63 L Hemoglobin 8.1 L 8.1 L Hematocrit 26.7 L 27.7 L Mean Corpuscular Volume 105.1 H 105.3 H Mean Corpuscular Hemoglobin 31.9 30.8 Mean Corpuscular Hemoglobin Concent 30.3 L 29.2 L Red Cell Distribution Width 16.7 H 16.9 H Platelet Count 155 143 Mean Platelet Volume 12.1 H 11.1 H Neutrophils % 45.6 68.3 Lymphocytes % 43.0 22.4 Monocytes % 8.2 7.7 Eosinophils % 2.4 0.9 Basophils % 0.5 0.3 Nucleated Red Blood Cells % 0.0 0.0 Neutrophils # 3.5 7.0 Lymphocytes # 3.3 H 2.3 Monocytes # 0.6 0.8 Eosinophils # 0.2 0.1 Basophils # 0.0 0.0 Nucleated Red Blood Cells # 0.0 0.0 Prothrombin Time 15.0 H Prothrombin Time Ratio 1.2 INR International Normalized Ratio 1.17 Activated Partial Thromboplast Time 31.0 Sodium Level 137 139 Potassium Level 8.4 *H 7.8 *H Chloride Level 113 H 115 H Carbon Dioxide Level 14 L 16 L Anion Gap 18 H 16 Blood Urea Nitrogen 69 H 73 H Creatinine 3.57 H 3.27 H Glucose Level 230 H 125 # Calcium Level 8.7 9.4 Total Bilirubin 0.0 L Direct Bilirubin 0.00 Indirect Bilirubin 0.0 Aspartate Amino Transf (AST/SGOT) 17 Alanine Aminotransferase (ALT/SGPT) 23 Alkaline Phosphatase 76 Troponin I < 0.012 B-Type Natriuretic Peptide 741 H Total Protein 9.6 H Albumin 4.3 Globulin 5.30 H Albumin/Globulin Ratio 0.81 Free Thyroxine 0.87 Bedside Glucose 208 Test 02/22/17 17:00 02/22/17 18:05 02/22/17 18:50 02/22/17 19:41 Urine Color YELLOW Urine Clarity SLIGHTLY CLOUDY A Urine pH 5.0 Urine Specific [place] 1.009 Urine Ketones NEGATIVE Urine Nitrite NEGATIVE Urine Bilirubin NEGATIVE Urine Urobilinogen NEGATIVE Urine Leukocyte Esterase NEGATIVE Urine Microscopic RBC 1 Urine Microscopic WBC 1 Urine Bacteria FEW A Urine Mucus FEW A Urine Hemoglobin NEGATIVE Urine Glucose NEGATIVE Urine Total Protein NEGATIVE Bedside Glucose 118 153 Creatine Kinase 35 Creatine Kinase Index 2.5 Creatinine Kinase MB (Mass) 0.87 Troponin I < 0.012 Test 02/22/17 20:50 02/22/17 23:10 02/23/17 00:54 02/23/17 04:05 Bedside Glucose 168 Sodium Level 139 143 Potassium Level 7.7 *H 6.5 *H Chloride Level 106 109 Carbon Dioxide Level 19 L 19 L Anion Gap 22 H 22 H Blood Urea Nitrogen 56 H 61 H Creatinine 2.82 H 3.26 H Glucose Level 184 79 # Calcium Level 9.4 9.6 Creatine Kinase 45 Creatine Kinase Index 1.9 Creatinine Kinase MB (Mass) 0.85 Troponin I < 0.012 White Blood Count 6.4 # Red Blood Count 2.63 L Hemoglobin 8.2 L Hematocrit 27.0 L Mean Corpuscular Volume 102.7 H Mean Corpuscular Hemoglobin 31.2 Mean Corpuscular Hemoglobin Concent 30.4 L Red Cell Distribution Width 16.6 H Platelet Count 133 L Mean Platelet Volume 12.1 H Neutrophils % 73.0 Lymphocytes % 17.3 Monocytes % 8.2 Eosinophils % 0.5 Basophils % 0.5 Nucleated Red Blood Cells % 0.0 Neutrophils # 4.7 Lymphocytes # 1.1 Monocytes # 0.5 Eosinophils # 0.0 Basophils # 0.0 Nucleated Red Blood Cells # 0.0 Hemoglobin A1c 8.5 H Phosphorus Level 3.6 Magnesium Level 1.4 L Total Bilirubin 0.1 L Direct Bilirubin 0.00 Indirect Bilirubin 0.1 Aspartate Amino Transf (AST/SGOT) 21 Alanine Aminotransferase (ALT/SGPT) 19 Alkaline Phosphatase 84 Total Protein 9.9 H Albumin 4.4 Globulin 5.50 H Albumin/Globulin Ratio 0.80 Triglycerides Level 113 Cholesterol Level 144 LDL Cholesterol, Calculated 91 HDL Cholesterol 30 L Cholesterol/HDL Ratio 4.8 Thyroid Stimulating Hormone (TSH) 1.600 Test 02/23/17 04:16 Bedside Glucose 78 Medications Medications Current Medications Dextrose (D50w Syringe) ONCE PRN IV POC BLOOD GLUCOSE <250 MG/DL Last administered on 02/22/17t 14:11; Admin Dose 50 ML; Start 02/22/17 at 14:00 Ondansetron HCl (Zofran Inj) 4 mg Q6H PRN IV NAUSEA AND/OR VOMITING; Start 02/22 at 16:30 Acetaminophen (Tylenol Tab) 650 mg Q6H PRN PO PAIN LEVEL 1-3 OR FEVER; Start at 16:30 Acetaminophen/ Hydrocodone Bitart ([place] (5/325)) 1 tab Q6H PRN PO MODERATE PAIN LEVEL 4-6; Start 02/22/17 at 16:30 Morphine Sulfate (morphine) 2 mg Q4H PRN IV SEVERE PAIN LEVEL 7-10; Start at 16:30 Docusate Sodium (Colace) 100 mg Q12H PRN PO CONSTIPATION; Start 02/22/17 at 16: 30 Magnesium Hydroxide (Milk Of Mag) 30 ml DAILY PRN PO CONSTIPATION; Start at 16:30 Sodium Biphosphate/ Sodium Phosphate (Fleet Enema) 133 ml DAILY PRN [place] CONSTIPATION; Start 02/22/17 at 16:30 Insulin Aspart (Novolog Insulin Pen) NOVOLOG *MILD* ALGORI... Q4 SC Last administered on 02/22/17 20:56; Admin Dose 1 UNIT; Start 02/22/17 at 17:00 Clopidogrel Bisulfate (plaVIX) 75 mg DAILY PO ; Start 02/23/17 at 09:00 Famotidine (Pepcid Iv) 20 mg DAILY IV Last administered on 02/22/17 17:18; Admin Dose 20 MG; Start 02/22/17 at 17:00 Miscellaneous Information 1 ea NOTE XX ; Start 02/22/17 at 17:00 Glucose (Glutose) 15 gm Q15M PRN PO DECREASED GLUCOSE; Start 02/22/17 at 17:00 Glucose (Glutose) 22.5 gm Q15M PRN PO DECREASED GLUCOSE; Start 02/22/17 at 17:00 Dextrose (D50w Syringe) 25 ml Q15M PRN IV DECREASED GLUCOSE; Start 02/22/17 at 17:00 Dextrose (D50w Syringe) 50 ml Q15M PRN IV DECREASED GLUCOSE; Start 02/22/17 at 17:00 Glucagon (Glucagen) 1 mg Q15M PRN IM DECREASED GLUCOSE; Start 02/22/17 at 17:00 Glucose 15 gm 15 gm Q15M PRN BUCCAL DECREASED GLUCOSE; Start 02/22/17 at 17:00 Magnesium Sulfate (Magnesium Sulfate 2 Gm/50 ml) 50 ml @ 25 mls/hr ONCE ONCE IVPB Last administered on 02/23/17 06:48; Admin Dose 25 MLS/HR; Start 02/23/17 at 06:30; Stop 02/23/17 at 08:29 MALORIE BACH MD Feb 23, 2017 08:58
--- NOTE | 2017-02-23 09:22 | PN ---
Date/Time of Note Date/Time of Note DATE: 02/23/17 TIME: 09:16 Assessment/Plan VTE Prophylaxis VTE Prophylaxis Intervention: SCD's Lines/Catheters IV Catheter Type (from Nrsg): [place] Cath Urinary Cath still in place: Yes Reason Cath still needed: urinary retention Assessment/Plan Chief Complaint/Hosp Course Assessment and plan: 86-year-old male coming in syncope, with acute on CRF, severe hyperkalemia, severe bradycardia, renal failure, metabolic acidosis 1. Hyperkalemia: Likely secondary to patient's severe hyperkalemia and bradycardia. Pt also with acute on CRF, on emergent HD now here in hospital. - continue HD per renal rec's - monitor BMP (K levels) 2. Renal failure: Appreciate renal consult - s/p HD x 2 thus far, as Ashvin was placed yesterday for emergent HD -follow renal recommendations regarding HD schedule.- per discussion with them, pt apparently recently Dx at [facility] via BM biopsy with myeloma. Per their rec's, HD at this point is case dependent, and will need to discuss with family about whether to go forward with HD given myeloma dx - will also request medical records from [facility] for further input/info on this Dx. - SPEP also pending. (Consider Heme/Onc consult as well once med records obtained) 3. Diabetes:A1c = 8.5 - continue sliding scale insulin 4. BPH: monitor 5. CAD - with possible dx of CHF: apparently patient had stent placement in the past - f/u echocardiogram, continue Plavix - will get CV consult as well 6. DJD: Continue current pain medications as needed 7. GI prophylaxis: H2 lina 8. DVT prophylaxis: SCD's Critical care time spent with care today = 45 min. Problems: Subjective 24 Hr Interval Summary Free Text/Dictation Pt received HD yesterday, and again today getting this. Seen by renal team this AM. Exam/Review of Systems Vital Signs Vitals Vital Signs Date Time Temp Pulse Resp B/P Pulse Ox O2 Delivery O2 Flow Rate FiO2 02/23/17 06:00 79 17 104/53 99 Nasal Cannula 3.0 02/23/17 04:00 98.4 02/22/17 19:45 30 Intake and Output 02/22/17 02/22/17 02/23/17 15:00 23:00 07:00 Intake Total 300 ml Output Total 3300 ml 150 ml Balance -3000 ml -150 ml Exam General: lying in bed, slightly lethargic Head: Normocephalic, atraumatic. Eyes: Pupils equally reactive, EOM intact ENT: Moist mucous membranes Neck: Supple, no lymphadenopathy Respiratory: Lungs clear bilaterally, no distress Cardiovascular: Bradycardia, no murmurs, rubs, or gallops Abdominal: Soft, non-tender, non-distended, no peritoneal signs MSK: No edema, no unilateral swelling, 5/5 strength Neurologic: moving all extremities, normal speech, no focal weakness, no cerebellar signs Results Result Diagram: 02/23/17 0405 02/23/17 0751 Results 24 hrs Laboratory Tests Test 02/22/17 12:35 02/22/17 12:50 02/22/17 13:05 02/22/17 15:40 White Blood Count 7.6 10.2 # Red Blood Count 2.54 L 2.63 L Hemoglobin 8.1 L 8.1 L Hematocrit 26.7 L 27.7 L Mean Corpuscular Volume 105.1 H 105.3 H Mean Corpuscular Hemoglobin 31.9 30.8 Mean Corpuscular Hemoglobin Concent 30.3 L 29.2 L Red Cell Distribution Width 16.7 H 16.9 H Platelet Count 155 143 Mean Platelet Volume 12.1 H 11.1 H Neutrophils % 45.6 68.3 Lymphocytes % 43.0 22.4 Monocytes % 8.2 7.7 Eosinophils % 2.4 0.9 Basophils % 0.5 0.3 Nucleated Red Blood Cells % 0.0 0.0 Neutrophils # 3.5 7.0 Lymphocytes # 3.3 H 2.3 Monocytes # 0.6 0.8 Eosinophils # 0.2 0.1 Basophils # 0.0 0.0 Nucleated Red Blood Cells # 0.0 0.0 Prothrombin Time 15.0 H Prothrombin Time Ratio 1.2 INR International Normalized Ratio 1.17 Activated Partial Thromboplast Time 31.0 Sodium Level 137 139 Potassium Level 8.4 *H 7.8 *H Chloride Level 113 H 115 H Carbon Dioxide Level 14 L 16 L Anion Gap 18 H 16 Blood Urea Nitrogen 69 H 73 H Creatinine 3.57 H 3.27 H Glucose Level 230 H 125 # Calcium Level 8.7 9.4 Total Bilirubin 0.0 L Direct Bilirubin 0.00 Indirect Bilirubin 0.0 Aspartate Amino Transf (AST/SGOT) 17 Alanine Aminotransferase (ALT/SGPT) 23 Alkaline Phosphatase 76 Troponin I < 0.012 B-Type Natriuretic Peptide 741 H Total Protein 9.6 H Albumin 4.3 Globulin 5.30 H Albumin/Globulin Ratio 0.81 Free Thyroxine 0.87 Bedside Glucose 208 Test 02/22/17 17:00 02/22/17 18:05 02/22/17 18:50 02/22/17 19:41 Urine Color YELLOW Urine Clarity SLIGHTLY CLOUDY A Urine pH 5.0 Urine Specific [place] 1.009 Urine Ketones NEGATIVE Urine Nitrite NEGATIVE Urine Bilirubin NEGATIVE Urine Urobilinogen NEGATIVE Urine Leukocyte Esterase NEGATIVE Urine Microscopic RBC 1 Urine Microscopic WBC 1 Urine Bacteria FEW A Urine Mucus FEW A Urine Hemoglobin NEGATIVE Urine Glucose NEGATIVE Urine Total Protein NEGATIVE Bedside Glucose 118 153 Creatine Kinase 35 Creatine Kinase Index 2.5 Creatinine Kinase MB (Mass) 0.87 Troponin I < 0.012 Test 02/22/17 20:50 02/22/17 23:10 02/23/17 00:54 02/23/17 04:05 Bedside Glucose 168 Sodium Level 139 143 Potassium Level 7.7 *H 6.5 *H Chloride Level 106 109 Carbon Dioxide Level 19 L 19 L Anion Gap 22 H 22 H Blood Urea Nitrogen 56 H 61 H Creatinine 2.82 H 3.26 H Glucose Level 184 79 # Calcium Level 9.4 9.6 Creatine Kinase 45 Creatine Kinase Index 1.9 Creatinine Kinase MB (Mass) 0.85 Troponin I < 0.012 White Blood Count 6.4 # Red Blood Count 2.63 L Hemoglobin 8.2 L Hematocrit 27.0 L Mean Corpuscular Volume 102.7 H Mean Corpuscular Hemoglobin 31.2 Mean Corpuscular Hemoglobin Concent 30.4 L Red Cell Distribution Width 16.6 H Platelet Count 133 L Mean Platelet Volume 12.1 H Neutrophils % 73.0 Lymphocytes % 17.3 Monocytes % 8.2 Eosinophils % 0.5 Basophils % 0.5 Nucleated Red Blood Cells % 0.0 Neutrophils # 4.7 Lymphocytes # 1.1 Monocytes # 0.5 Eosinophils # 0.0 Basophils # 0.0 Nucleated Red Blood Cells # 0.0 Hemoglobin A1c 8.5 H Phosphorus Level 3.6 Magnesium Level 1.4 L Total Bilirubin 0.1 L Direct Bilirubin 0.00 Indirect Bilirubin 0.1 Aspartate Amino Transf (AST/SGOT) 21 Alanine Aminotransferase (ALT/SGPT) 19 Alkaline Phosphatase 84 Total Protein 9.9 H Albumin 4.4 Globulin 5.50 H Albumin/Globulin Ratio 0.80 Triglycerides Level 113 Cholesterol Level 144 LDL Cholesterol, Calculated 91 HDL Cholesterol 30 L Cholesterol/HDL Ratio 4.8 Thyroid Stimulating Hormone (TSH) 1.600 Test 02/23/17 04:16 02/23/17 07:51 02/23/17 08:48 Bedside Glucose 78 126 Potassium Level 6.8 *H Medications Medications Current Medications Dextrose (D50w Syringe) ONCE PRN IV POC BLOOD GLUCOSE <250 MG/DL Last administered on 02/22/17 14:11; Admin Dose 50 ML; Start 02/22/17 at 14:00 Ondansetron HCl (Zofran Inj) 4 mg Q6H PRN IV NAUSEA AND/OR VOMITING; Start 02/22 at 16:30 Acetaminophen (Tylenol Tab) 650 mg Q6H PRN PO PAIN LEVEL 1-3 OR FEVER; Start at 16:30 Acetaminophen/ Hydrocodone Bitart ([place] (5/325)) 1 tab Q6H PRN PO MODERATE PAIN LEVEL 4-6; Start 02/22/17 at 16:30 Morphine Sulfate (morphine) 2 mg Q4H PRN IV SEVERE PAIN LEVEL 7-10; Start at 16:30 Docusate Sodium (Colace) 100 mg Q12H PRN PO CONSTIPATION; Start 02/22/17 at 16: 30 Magnesium Hydroxide (Milk Of Mag) 30 ml DAILY PRN PO CONSTIPATION; Start at 16:30 Sodium Biphosphate/ Sodium Phosphate (Fleet Enema) 133 ml DAILY PRN [place] CONSTIPATION; Start 02/22/17 at 16:30 Insulin Aspart (Novolog Insulin Pen) NOVOLOG *MILD* ALGORI... Q4 SC Last administered on 02/22/17 20:56; Admin Dose 1 UNIT; Start 02/22/17 at 17:00 Clopidogrel Bisulfate (plaVIX) 75 mg DAILY PO ; Start 02/23/17 at 09:00 Famotidine (Pepcid Iv) 20 mg DAILY IV Last administered on 02/22/17 17:18; Admin Dose 20 MG; Start 02/22/17 at 17:00 Miscellaneous Information 1 ea NOTE XX ; Start 02/22/17 at 17:00 Glucose (Glutose) 15 gm Q15M PRN PO DECREASED GLUCOSE; Start 02/22/17 at 17:00 Glucose (Glutose) 22.5 gm Q15M PRN PO DECREASED GLUCOSE; Start 02/22/17 at 17:00 Dextrose (D50w Syringe) 25 ml Q15M PRN IV DECREASED GLUCOSE; Start 02/22/17 at 17:00 Dextrose (D50w Syringe) 50 ml Q15M PRN IV DECREASED GLUCOSE; Start 02/22/17 at 17:00 Glucagon (Glucagen) 1 mg Q15M PRN IM DECREASED GLUCOSE; Start 02/22/17 at 17:00 Glucose 15 gm 15 gm Q15M PRN BUCCAL DECREASED GLUCOSE; Start 02/22/17 at 17:00 Albumin Human 100 ml @ 100 mls/hr ONCE ONCE IV Last administered on 02/23/17t 08:59; Admin Dose 100 MLS/HR; Start 02/23/17 at 09:00; Stop 02/23/17 at 09:59 Magnesium Sulfate/ Sodium Chloride (Magnesium Sulfate/NS) 106 ml @ 35.333 mls/ hr ONCE ONCE IVPB ; Start 02/23/17 at 09:30; Stop 02/23/17 at 12:29; Status BASILIO ELLIOTT Feb 23, 2017 09:22
[2017-02-23] MEDS ORDERED: MAG SULFATE 2GM IN 50 ML IVPB ONE (09:30)
[2017-02-23] MEDS ORDERED: MAGNESIUM SULFATE 3 GM in SOD CHLORIDE 0.9% 100 ML IVPB ONE (09:30)
[2017-02-23] MEDS: FAMOTIDINE 20 MG INJ IV SCH (11:49)
[2017-02-23] MEDS: CLOPIDOGREL 75 MG TAB PO SCH (11:49)
[2017-02-23 14:22] LABS: CALCIUM 8.2 mg/dl (8.4-10.2); CREATINE KINASE 75 IU/L (23-200); CREATININE 2.22 mg/dl (0.61-1.24); POTASSIUM 4.3 mmol/L (3.5-5.1)
[2017-02-23 14:38] LABS: CK-MB 0.91 ng/ml (0.0-2.4); TROPONIN-I < 0.012 ng/ml (0.00-0.12)
[2017-02-23] MEDS: MULTIVIT/CA CARB/B CMPLX/FA TAB PO SCH (17:24)
[2017-02-23] MEDS: ZINC SULFATE 220 MG CAP PO SCH (17:24)
[2017-02-23 19:59] LABS: TROPONIN-I 0.012 ng/ml (0.00-0.12)
[2017-02-23 20:02] LABS: CK-MB 1.06 ng/ml (0.0-2.4)
--- NOTE | 2017-02-23 21:19 | RADRPT ---
Echocardiogram Report Patient Name: ANTONIO SAMUELS Gender: Male Date: 1930 Study Date: 23-Feb-2017 Ekg Monitor: YUE Location: [place] Ref. Physician: BASILIO TRUJILLO Quality: Adequate Procedures: Transthoracic echocardiogram with complete 2D, M-Mode, and doppler examination. Indications: Congestive Heart Failure. 2D/M Mode Doppler Measurement Value Normal Ranges Measurement Value Normal Ranges AoR Diam MM 3.6 cm AV Peak Neil 1.8 m/sec LVIDd 2D 3.9 3.5 - 5.6 cm AV Peak PG 12.3 mmHg LVIDs 2D 2.6 2.1 - 4.1 cm LVOT Peak Neil 1.2 m/sec LVPWd 2D 1.4 0.6 - 1.1 cm LVOT Peak PG 5.7 mmHg IVSd 2D 1.5 0.6 - 1.1 cm MV E Peak Neil 0.6 m/sec EDV 2D 64.2 cm3 MV A Peak Neil 1.3 m/sec ESV 2D 17.1 cm3 MV E/A 0.5 LA Dimen 2D 3.5 2.3 - 4.0 cm MV Decel Time 190 msec MV Decel Frontier 3 MV E/A 0.5 PV Peak Neil 1.1 m/sec PV Peak PG 5.0 mmHg Findings Left Ventricle: Normal left ventricular systolic function. Normal left ventricular cavity size. Mild concentric left ventricular hypertrophy. Ejection fraction is visually estimated at 65 %. Tissue Doppler/Mitral Doppler indices are consistent with impaired relaxation (Stage I diastolic dysfunction). Right Ventricle: Normal right ventricular size. Normal right ventricular systolic function. Left Atrium: The left atrium is normal in size. Right Atrium: The right atrium is normal in size. Mitral Valve: Mild mitral annular calcification. No mitral valve regurgitation is seen. Aortic Valve: No significant aortic stenosis or insufficiency. Aortic cusps appear mildly calcified. Tricuspid Valve: Normal appearance of the tricuspid valve. No evidence of tricuspid regurgitation. Pulmonic Valve: Normal pulmonic valve appearance. No evidence of pulmonic regurgitation. Pericardium: Normal pericardium with no significant pericardial effusion. Aorta: Normal aortic root. IVC: Normal size and normal respiratory collapse consistent with normal right atrial pressure. Pulmonary Artery: Normal pulmonary artery size. Conclusions Normal left ventricular systolic function. Normal left ventricular cavity size. Mild concentric left ventricular hypertrophy. Ejection fraction is visually estimated at 65 %. Tissue Doppler/Mitral Doppler indices are consistent with impaired relaxation (Stage I diastolic dysfunction). Normal right ventricular size. Normal right ventricular systolic function. The left atrium is normal in size. The right atrium is normal in size. No significant valvular stenosis or regurgitation seen. Normal pericardium with no significant pericardial effusion. Electronically Signed By: Carlton Belle 23-Feb-2017 21:18:43 -0700 Patient Name: NATONIO SAMUELS Study Date: 23-Feb-2017 [id number]
[2017-02-23] MEDS ORDERED: LORAZEPAM 2 MG INJ IV PRN (22:00)
[2017-02-24] VITALS (18 sets, daily range): BP systolic 107–165; BP diastolic 57–89; PULSE 83–128; RESP 14–26
[2017-02-24] MEDS ORDERED: HALOPERIDOL 5 MG INJ IM ONE ×2 (01:00→01:30)
[2017-02-24] MEDS: ACCU-CHEK XX SCH (01:24)
[2017-02-24 06:31] LABS: ADD SCAN DIFF NO
[2017-02-24 06:48] LABS: BASOPHILS % 0.3 % (0.0-2.0); HEMATOCRIT 27.6 % (42.0-52.0); HEMOGLOBIN 8.6 g/dl (14.0-18.0); LYMPHOCYTES # 1.1 10^3/ul (0.8-2.9); LYMPHOCYTES % 15.5 % (15.0-51.0); MEAN CORPUSCULAR HEMOGLOBIN 30.5 pg (29.0-33.0); MEAN CORPUSCULAR HGB CONC 31.2 g/dl (32.0-37.0); MEAN CORPUSCULAR VOLUME 97.9 fl (82.0-101.0); MEAN PLATELET VOLUME 12.9 fl (7.4-10.4); MONOCYTE # 0.6 10^3/ul (0.3-0.9); MONOCYTES % 8.5 % (0.0-11.0); NEUTROPHIL # 5.4 10^3/ul (1.6-7.5); NEUTROPHILS % 75.4 % (39.0-77.0); PLATELET COUNT 121 10^3/UL (140-415); RED BLOOD COUNT 2.82 10^6/ul (4.70-6.10); RED CELL DISTRIBUTION WIDTH 16.5 % (11.5-14.5); WHITE BLOOD COUNT 7.2 10^3/ul (4.8-10.8)
[2017-02-24 07:04] LABS: MAGNESIUM 2.6 mg/dl (1.7-2.5); PHOSPHORUS 3.8 mg/dl (2.5-4.9)
[2017-02-24] MEDS: INSULIN ASPART [NOVOLOG] 3 ML PEN SC SCH ×5 (07:45→21:00)
[2017-02-24 07:54] LABS: CALCIUM 8.4 mg/dl (8.4-10.2); CREATININE 2.64 mg/dl (0.61-1.24); POTASSIUM 4.8 mmol/L (3.5-5.1)
[2017-02-24] MEDS: MULTIVIT/CA CARB/B CMPLX/FA TAB PO SCH (09:02)
[2017-02-24] MEDS: ZINC SULFATE 220 MG CAP PO SCH (09:02)
[2017-02-24] MEDS: CLOPIDOGREL 75 MG TAB PO SCH (09:02)
[2017-02-24] MEDS: FAMOTIDINE 20 MG INJ IV SCH (09:02)
--- NOTE | 2017-02-24 09:44 | PN ---
Date/Time of Note Date/Time of Note DATE: 02/24/17 TIME: 09:31 Assessment/Plan VTE Prophylaxis VTE Prophylaxis Intervention: SCD's Lines/Catheters IV Catheter Type (from Nrsg): MICHELLE CATH Urinary Cath still in place: Yes Reason Cath still needed: other (indicate) Assessment/Plan Chief Complaint/Hosp Course Chief Complaint/Hosp Course 1. Hyperkalemia: Likely secondary to patient's acute on CRF, improved status post hemodialysis - continue HD per renal rec's - monitor BMP (K levels) 2. Renal failure: Appreciate renal consult - s/p HD x 2 thus far, as Michelle was placed -follow renal recommendations regarding HD schedule.- per discussion with them, pt apparently recently Dx at [facility] via BM biopsy with myeloma. Per their rec's, HD at this point is case dependent, and will need to discuss with family about whether to go forward with HD given myeloma dx - will also request medical records from [facility] for further input/info on this Dx. - SPEP also pending. (Consider Heme/Onc consult as well once med records obtained) 3. Diabetes:A1c = 8.5 - continue sliding scale insulin -Low-carb diet 4. BPH: monitor 5. CAD - with history of CAD with PCI - echocardiogram showed normal ejection fraction 65%, continue Plavix 6. Bradycardia: Likely secondary to electrolyte imbalance, resolved 7. DJD: Continue current pain medications as needed 8. GI prophylaxis: H2 lian 9. DVT prophylaxis: SCD's/Plavix We will continue monitor patient closely for recommendation management treatment as clinical course Patient is stable to be transferred to telemetry Problems: Subjective 24 Hr Interval Summary Free Text/Dictation Patient was found to be agitated through throughout the night At this time he is resting comfortably without any acute distress Tolerating oral intake No chest pain or shortness of breath Exam/Review of Systems Vital Signs Vitals Vital Signs Date Time Temp Pulse Resp B/P Pulse Ox O2 Delivery O2 Flow Rate FiO2 02/24/17 09:00 95 14 136/58 97 Nasal Cannula 2.0 02/24/17 07:00 98.6 02/22/17 19:45 30 Intake and Output 02/23/17 02/23/17 02/24/17 15:00 23:00 07:00 Intake Total 250 ml 150 ml Output Total 150 ml 275 ml 265 ml Balance 100 ml -125 ml -265 ml Exam General: The patient is lying in bed comfortably, Not in acute distress. HEENT: Atraumatic, normocephalic. The pupils are equal and round . Neck: Supple , IJ central line in right cervical Chest: Normal Lungs: Clear to auscultation bilaterally Heart: Normal S1-S2, RRR Abdomen: Soft , nontender, nondistended , bowel sounds are present. Extremities: Normal to inspection, trace edema no cyanosis, permacath and right groin Neurologic: Patient is arousable, follows simple commands Results Result Diagram: 02/24/1751902/24/1720 Results 24 hrs Laboratory Tests Test 02/23/17 13:20 02/23/17 13:30 02/23/17 17:15 02/23/17 19:20 Bedside Glucose 106 168 Sodium Level 136 Potassium Level 4.3 # Chloride Level 97 # Carbon Dioxide Level 27 Anion Gap 16 Blood Urea Nitrogen 32 #H Creatinine 2.22 #H Glucose Level 107 Calcium Level 8.2 L Creatine Kinase 75 103 Creatine Kinase Index 1.2 1.0 Creatinine Kinase MB (Mass) 0.91 1.06 Troponin I < 0.012 0.012 Test 02/23/17 21:56 02/24/17 05:20 02/24/17 07:41 Bedside Glucose 179 210 White Blood Count 7.2 Red Blood Count 2.82 L Hemoglobin 8.6 L Hematocrit 27.6 L Mean Corpuscular Volume 97.9 Mean Corpuscular Hemoglobin 30.5 Mean Corpuscular Hemoglobin Concent 31.2 L Red Cell Distribution Width 16.5 H Platelet Count 121 L Mean Platelet Volume 12.9 H Neutrophils % 75.4 Lymphocytes % 15.5 Monocytes % 8.5 Eosinophils % 0.0 Basophils % 0.3 Nucleated Red Blood Cells % 0.0 Neutrophils # 5.4 Lymphocytes # 1.1 Monocytes # 0.6 Eosinophils # 0.0 Basophils # 0.0 Nucleated Red Blood Cells # 0.0 Sodium Level 137 Potassium Level 4.8 Chloride Level 98 Carbon Dioxide Level 24 Anion Gap 20 H Blood Urea Nitrogen 35 H Creatinine 2.64 H Glucose Level 245 #H Calcium Level 8.4 Phosphorus Level 3.8 Magnesium Level 2.6 #H Medications Medications Current Medications Dextrose (D50w Syringe) ONCE PRN IV POC BLOOD GLUCOSE <250 MG/DL Last administered on 02/22/17 14:11; Admin Dose 50 ML; Start 02/22/17 at 14:00 Ondansetron HCl (Zofran Inj) 4 mg Q6H PRN IV NAUSEA AND/OR VOMITING; Start 02/22 at 16:30 Acetaminophen (Tylenol Tab) 650 mg Q6H PRN PO PAIN LEVEL 1-3 OR FEVER; Start at 16:30 Acetaminophen/ Hydrocodone Bitart ([place] (5/325)) 1 tab Q6H PRN PO MODERATE PAIN LEVEL 4-6; Start 02/22/17 at 16:30 Morphine Sulfate (morphine) 2 mg Q4H PRN IV SEVERE PAIN LEVEL 7-10; Start at 16:30 Docusate Sodium (Colace) 100 mg Q12H PRN PO CONSTIPATION; Start 02/22/17 at 16: 30 Magnesium Hydroxide (Milk Of Mag) 30 ml DAILY PRN PO CONSTIPATION; Start at 16:30 Sodium Biphosphate/ Sodium Phosphate (Fleet Enema) [address] CONSTIPATION; Start 02/22/17 at 16:30 Clopidogrel Bisulfate (plaVIX) 75 mg DAILY PO Last administered on 02/24/17 09 :02; Admin Dose 75 MG; Start 02/23/17 at 09:00 Famotidine (Pepcid Iv) 20 mg DAILY IV Last administered on 02/24/17 09:02; Admin Dose 20 MG; Start 02/22/17 at 17:00 Miscellaneous Information 1 ea NOTE XX ; Start 02/22/17 at 17:00 Glucose (Glutose) 15 gm Q15M PRN PO DECREASED GLUCOSE; Start 02/22/17 at 17:00 Glucose (Glutose) 22.5 gm Q15M PRN PO DECREASED GLUCOSE; Start 02/22/17 at 17:00 Dextrose (D50w Syringe) 25 ml Q15M PRN IV DECREASED GLUCOSE; Start 02/22/17 at 17:00 Dextrose (D50w Syringe) 50 ml Q15M PRN IV DECREASED GLUCOSE; Start 02/22/17 at 17:00 Glucagon (Glucagen) 1 mg Q15M PRN IM DECREASED GLUCOSE; Start 02/22/17 at 17:00 Glucose (Glutose) 15 gm Q15M PRN BUCCAL DECREASED GLUCOSE; Start 02/22/17 at 17: 00 Multivit/Ca Carb/ B Cmplx/FA/Prenat (Ailin-Amee) 1 tab DAILY PO Last administered on 02/24/17 09:02; Admin Dose 1 TAB; Start 02/23/17 at 13:00 Zinc Sulfate (Zinc Sulfate) 220 mg DAILY PO Last administered on 02/24/17 09: 02; Admin Dose 220 MG; Start 02/23/17 at 13:00 Diagnostic Test (Pha) (Accu-Chek) 1 XX ; Start 02/24/17 at 02:00 AYAN STILL MD Feb 24, 2017 09:42
--- NOTE | 2017-02-24 09:51 | CONS ---
Date/Time of Note Date/Time of Note DATE: 02/24/17 TIME: 09:42 Assessment/Plan Assessment/Plan Chief Complaint/Hosp Course IMp: 1.Bradycardia-resolved since correction in K 2.Hypotension-improved. Echo NL EF this admit 3.RBBB 4.REnal failure 5.Hyperkalemia-improved 4.2 today 6. cad REecc: -Tele -serial ecg's -Continue plavix -Continue bronchodilators -HD for volume removal -Follow K closely -start BB Problems: Consultation Date/Type/Reason Admit Date/Time Feb 22, 2017 at 15:38 Initial Consult Date 02/22/17 Type of Consultation: cardiology Reason for Consultation bradycardia Referring Provider: BASILIO TRUJILLO Exam/Review of Systems Vital Signs Vitals Vital Signs Date Time Temp Pulse Resp B/P Pulse Ox O2 Delivery O2 Flow Rate FiO2 02/24/17 09:00 95 14 136/58 97 Nasal Cannula 2.0 02/24/17 07:00 98.6 02/22/17 19:45 30 Intake and Output 02/23/17 02/23/17 02/24/17 15:00 23:00 07:00 Intake Total 250 ml 150 ml Output Total 150 ml 275 ml 265 ml Balance 100 ml -125 ml -265 ml Exam Review of Systems: CONSTITUTIONAL: No fevers, chills. PULMONARY: No obvious sob CARDIOVASCULAR: No obvious chest pain/palpitations GASTROINTESTINAL: No nausea/vomiting. GENITOURINARY: No hematuria/dysuria. MUSCULOSKELETAL: No myagias/arthalgias. PSYCHIATRIC: The patient denies depression. NEUROLOGIC: lethargic Constitutional: other (sleeping, artousable) Head: normocephalic ENMT: mucosa pink and moist Neck: jvd (9 cm water), supple Respiratory: diminished breath sounds (at bases/B) Cardiovascular: regular rate and rhythm Gastrointestinal: non-tender, soft Musculoskeletal: muscle tone (normal) Extremities: edema (trace/B) Neurological: other (No focal deficits) Results Result Diagram: 02/24/17 0520 02/24/17 0520 Results 24 hrs Laboratory Tests Test 02/23/17 13:20 02/23/17 13:30 02/23/17 17:15 02/23/17 19:20 Bedside Glucose 106 168 Sodium Level 136 Potassium Level 4.3 # Chloride Level 97 # Carbon Dioxide Level 27 Anion Gap 16 Blood Urea Nitrogen 32 #H Creatinine 2.22 #H Glucose Level 107 Calcium Level 8.2 L Creatine Kinase 75 103 Creatine Kinase Index 1.2 1.0 Creatinine Kinase MB (Mass) 0.91 1.06 Troponin I < 0.012 0.012 Test 02/23/17 21:56 02/24/17 05:20 02/24/17 07:41 Bedside Glucose 179 210 White Blood Count 7.2 Red Blood Count 2.82 L Hemoglobin 8.6 L Hematocrit 27.6 L Mean Corpuscular Volume 97.9 Mean Corpuscular Hemoglobin 30.5 Mean Corpuscular Hemoglobin Concent 31.2 L Red Cell Distribution Width 16.5 H Platelet Count 121 L Mean Platelet Volume 12.9 H Neutrophils % 75.4 Lymphocytes % 15.5 Monocytes % 8.5 Eosinophils % 0.0 Basophils % 0.3 Nucleated Red Blood Cells % 0.0 Neutrophils # 5.4 Lymphocytes # 1.1 Monocytes # 0.6 Eosinophils # 0.0 Basophils # 0.0 Nucleated Red Blood Cells # 0.0 Sodium Level 137 Potassium Level 4.8 Chloride Level 98 Carbon Dioxide Level 24 Anion Gap 20 H Blood Urea Nitrogen 35 H Creatinine 2.64 H Glucose Level 245 #H Calcium Level 8.4 Phosphorus Level 3.8 Magnesium Level 2.6 #H Medications Medications Current Medications Dextrose (D50w Syringe) ONCE PRN IV POC BLOOD GLUCOSE <250 MG/DL Last administered on 02/22/17t 14:11; Admin Dose 50 ML; Start 02/22/17 at 14:00 Ondansetron HCl (Zofran Inj) 4 mg Q6H PRN IV NAUSEA AND/OR VOMITING; Start 02/22 at 16:30 Acetaminophen (Tylenol Tab) 650 mg Q6H PRN PO PAIN LEVEL 1-3 OR FEVER; Start at 16:30 Acetaminophen/ Hydrocodone Bitart ([place] (5/325)) 1 tab Q6H PRN PO MODERATE PAIN LEVEL 4-6; Start 02/22/17 at 16:30 Morphine Sulfate (morphine) 2 mg Q4H PRN IV SEVERE PAIN LEVEL 7-10; Start at 16:30 Docusate Sodium (Colace) 100 mg Q12H PRN PO CONSTIPATION; Start 02/22/17 at 16: 30 Magnesium Hydroxide (Milk Of Mag) 30 ml DAILY PRN PO CONSTIPATION; Start at 16:30 Sodium Biphosphate/ Sodium Phosphate (Fleet Enema) 133 ml DAILY PRN [place] CONSTIPATION; Start 02/22/17 at 16:30 Clopidogrel Bisulfate (plaVIX) 75 mg DAILY PO Last administered on 02/24/17 09 :02; Admin Dose 75 MG; Start 02/23/17 at 09:00 Famotidine (Pepcid Iv) 20 mg DAILY IV Last administered on 02/24/17 09:02; Admin Dose 20 MG; Start 02/22/17 at 17:00 Miscellaneous Information 1 ea NOTE XX ; Start 02/22/17 at 17:00 Glucose (Glutose) 15 gm Q15M PRN PO DECREASED GLUCOSE; Start 02/22/17 at 17:00 Glucose (Glutose) 22.5 gm Q15M PRN PO DECREASED GLUCOSE; Start 02/22/17 at 17:00 Dextrose (D50w Syringe) 25 ml Q15M PRN IV DECREASED GLUCOSE; Start 02/22/17 at 17:00 Dextrose (D50w Syringe) 50 ml Q15M PRN IV DECREASED GLUCOSE; Start 02/22/17 at 17:00 Glucagon (Glucagen) 1 mg Q15M PRN IM DECREASED GLUCOSE; Start 02/22/17 at 17:00 Glucose (Glutose) 15 gm Q15M PRN BUCCAL DECREASED GLUCOSE; Start 02/22/17 at 17: 00 Multivit/Ca Carb/ B Cmplx/FA/Prenat (Ailin-Amee) 1 tab DAILY PO Last administered on 02/24/17 09:02; Admin Dose 1 TAB; Start 02/23/17 at 13:00 Zinc Sulfate (Zinc Sulfate) 220 mg DAILY PO Last administered on 02/24/17 09: 02; Admin Dose 220 MG; Start 02/23/17 at 13:00 Diagnostic Test (Pha) (Accu-Chek) 1 ea 02 XX ; Start 02/24/17 at 02:00 TATIANA LESLIE Feb 24, 2017 09:51
--- NOTE | 2017-02-24 13:37 | CONS ---
Date/Time of Note Date/Time of Note DATE: 02/24/17 TIME: 13:31 Assessment/Plan Assessment/Plan Chief Complaint/Hosp Course Impression: 1. Acute on chronic kidney disease , now getting hemodialysis. Patient was admitted 2 days ago with hyperkalemia. His potassium today is acceptable. He was dialyzed the last 2 days via a right femoral Ashvin catheter. 2. Multiple myeloma recently diagnosed by bone marrow biopsy. 3. Diabetes mellitus. Plan: 1. Will order hemodialysis treatment for tomorrow. 2. Patient and family discussions are underway to determine whether patient wants to continue hemodialysis in view of his diagnosis of multiple myeloma. 3. I will follow patient along with you. Problems: Consultation Date/Type/Reason Admit Date/Time Feb 22, 2017 at 15:38 Initial Consult Date 02/22/17 Type of Consultation: cardiology Referring Provider: BASILIO TRUJILLO 24 HR Interval Summary Free Text/Dictation He is in the ICU. He is lethargic but does arouse some to verbal stimuli. He is [place]-speaking only. There is a sitter in the room with him. The sitter says that the patient has been comfortable. That he has not complained or shown any shortness of breath. Subjective hx not possible: pt non-verbal Exam/Review of Systems Vital Signs Vitals Vital Signs Date Time Temp Pulse Resp B/P Pulse Ox O2 Delivery O2 Flow Rate FiO2 02/24/17 13:19 Nasal Cannula 2.0 02/24/17 12:25 83 02/24/17 12:05 97.5 19 134/65 96 02/22/17 19:45 30 Intake and Output 02/23/17 02/23/17 02/24/17 15:00 23:00 07:00 Intake Total 250 ml 150 ml Output Total 150 ml 275 ml 265 ml Balance 100 ml -125 ml -265 ml Exam Constitutional: frail, non-verbal Respiratory: clear to auscultation, normal air movement Cardiovascular: regular rate and rhythm Gastrointestinal: soft Musculoskeletal: nl extremities to inspection Results Result Diagram: 02/24/17 0520 02/24/17 0520 Results 24 hrs Laboratory Tests Test 02/23/17 17:15 02/23/17 19:20 02/23/17 21:56 02/24/17 05:20 Bedside Glucose 168 179 Creatine Kinase 103 Creatine Kinase Index 1.0 Creatinine Kinase MB (Mass) 1.06 Troponin I 0.012 White Blood Count 7.2 Red Blood Count 2.82 L Hemoglobin 8.6 L Hematocrit 27.6 L Mean Corpuscular Volume 97.9 Mean Corpuscular Hemoglobin 30.5 Mean Corpuscular Hemoglobin Concent 31.2 L Red Cell Distribution Width 16.5 H Platelet Count 121 L Mean Platelet Volume 12.9 H Neutrophils % 75.4 Lymphocytes % 15.5 Monocytes % 8.5 Eosinophils % 0.0 Basophils % 0.3 Nucleated Red Blood Cells % 0.0 Neutrophils # 5.4 Lymphocytes # 1.1 Monocytes # 0.6 Eosinophils # 0.0 Basophils # 0.0 Nucleated Red Blood Cells # 0.0 Sodium Level 137 Potassium Level 4.8 Chloride Level 98 Carbon Dioxide Level 24 Anion Gap 20 H Blood Urea Nitrogen 35 H Creatinine 2.64 H Glucose Level 245 #H Calcium Level 8.4 Phosphorus Level 3.8 Magnesium Level 2.6 #H Test 02/24/17 07:41 02/24/17 11:07 Bedside Glucose 210 115 Medications Medications Current Medications Dextrose (D50w Syringe) ONCE PRN IV POC BLOOD GLUCOSE <250 MG/DL Last administered on 02/22/17t 14:11; Admin Dose 50 ML; Start 02/22/17 at 14:00 Ondansetron HCl (Zofran Inj) 4 mg Q6H PRN IV NAUSEA AND/OR VOMITING; Start 02/22 at 16:30 Acetaminophen (Tylenol Tab) 650 mg Q6H PRN PO PAIN LEVEL 1-3 OR FEVER; Start at 16:30 Acetaminophen/ Hydrocodone Bitart ([place] (5/325)) 1 tab Q6H PRN PO MODERATE PAIN LEVEL 4-6; Start 02/22/17 at 16:30 Morphine Sulfate (morphine) 2 mg Q4H PRN IV SEVERE PAIN LEVEL 7-10; Start at 16:30 Docusate Sodium (Colace) 100 mg Q12H PRN PO CONSTIPATION; Start 02/22/17 at 16: 30 Magnesium Hydroxide (Milk Of Mag) 30 ml DAILY PRN PO CONSTIPATION; Start at 16:30 Sodium Biphosphate/ Sodium Phosphate (Fleet Enema) 133 ml DAILY PRN [place] CONSTIPATION; Start 02/22/17 at 16:30 Clopidogrel Bisulfate (plaVIX) 75 mg DAILY PO Last administered on 02/24/17 09 :02; Admin Dose 75 MG; Start 02/23/17 at 09:00 Famotidine (Pepcid Iv) 20 mg DAILY IV Last administered on 02/24/17 09:02; Admin Dose 20 MG; Start 02/22/17 at 17:00 Miscellaneous Information 1 ea NOTE XX ; Start 02/22/17 at 17:00 Glucose (Glutose) 15 gm Q15M PRN PO DECREASED GLUCOSE; Start 02/22/17 at 17:00 Glucose (Glutose) 22.5 gm Q15M PRN PO DECREASED GLUCOSE; Start 02/22/17 at 17:00 Dextrose (D50w Syringe) 25 ml Q15M PRN IV DECREASED GLUCOSE; Start 02/22/17 at 17:00 Dextrose (D50w Syringe) 50 ml Q15M PRN IV DECREASED GLUCOSE; Start 02/22/17 at 17:00 Glucagon (Glucagen) 1 mg Q15M PRN IM DECREASED GLUCOSE; Start 02/22/17 at 17:00 Glucose (Glutose) 15 gm Q15M PRN BUCCAL DECREASED GLUCOSE; Start 02/22/17 at 17: 00 Multivit/Ca Carb/ B Cmplx/FA/Prenat (Ailin-Amee) 1 tab DAILY PO Last administered on 02/24/17 09:02; Admin Dose 1 TAB; Start 02/23/17 at 13:00 Zinc Sulfate (Zinc Sulfate) 220 mg DAILY PO Last administered on 02/24/17 09: 02; Admin Dose 220 MG; Start 02/23/17 at 13:00 Diagnostic Test (Pha) (Accu-Chek) 1 ea 02 XX ; Start 02/24/17 at 02:00 Metoprolol Tartrate (Lopressor) 25 mg BID PO ; Start 02/24/17 at 21:00 JAIME PERALES MD Feb 24, 2017 13:37
--- NOTE | 2017-02-24 13:43 | RADRPT ---
Vent Rate: 83 bpm RR Interval: 0 msec MI Interval: 192 msec QRS Duration: 148 msec QT Interval: 392 msec QTC Interval: 460 msec P-R-T [place]: 49 - 53 - 35 degrees Sinus rhythm with marked sinus arrhythmia Possible Left atrial enlargement Right bundle branch block Abnormal ECG Electronically Signed By: Carlton Belle [id number]
--- NOTE | 2017-02-24 13:46 | RADRPT ---
Vent Rate: 105 bpm RR Interval: 0 msec VT Interval: 186 msec QRS Duration: 148 msec QT Interval: 370 msec QTC Interval: 489 msec P-R-T [place]: 27 - 37 - 33 degrees Sinus tachycardia Possible Left atrial enlargement Right bundle branch block Abnormal ECG Electronically Signed By: Carlton Blele [id number]
[2017-02-24] MEDS: METOPROLOL 25 MG TAB PO SCH (21:37)
[2017-02-25] VITALS (8 sets, daily range): BP systolic 119–154; BP diastolic 56–71; PULSE 82–96; RESP 16–19
[2017-02-25] MEDS: ACCU-CHEK XX SCH (02:00)
[2017-02-25 02:08] LABS: PROTEIN, TOTAL 9.4 g/dL (6.1-8.1)
[2017-02-25] MEDS: INSULIN ASPART [NOVOLOG] 3 ML PEN SC SCH ×2 (08:00→12:23)
[2017-02-25] MEDS: FAMOTIDINE 20 MG INJ IV SCH (09:00)
[2017-02-25] MEDS: ZINC SULFATE 220 MG CAP PO SCH (09:00)
[2017-02-25] MEDS: MULTIVIT/CA CARB/B CMPLX/FA TAB PO SCH (09:00)
[2017-02-25 09:38] LABS: ADD SCAN DIFF NO
[2017-02-25 09:45] LABS: BASOPHILS % 0.4 % (0.0-2.0); EOSINOPHILS # 0.1 10^3/ul (0.0-0.5); HEMATOCRIT 29.3 % (42.0-52.0); HEMOGLOBIN 8.6 g/dl (14.0-18.0); LYMPHOCYTES # 1.8 10^3/ul (0.8-2.9); LYMPHOCYTES % 25.3 % (15.0-51.0); MEAN CORPUSCULAR HEMOGLOBIN 30.1 pg (29.0-33.0); MEAN CORPUSCULAR HGB CONC 29.4 g/dl (32.0-37.0); MEAN CORPUSCULAR VOLUME 102.4 fl (82.0-101.0); MEAN PLATELET VOLUME 12.7 fl (7.4-10.4); MONOCYTE # 0.7 10^3/ul (0.3-0.9); MONOCYTES % 9.4 % (0.0-11.0); NEUTROPHIL # 4.5 10^3/ul (1.6-7.5); NEUTROPHILS % 62.6 % (39.0-77.0); PLATELET COUNT 129 10^3/UL (140-415); RED BLOOD COUNT 2.86 10^6/ul (4.70-6.10); RED CELL DISTRIBUTION WIDTH 16.4 % (11.5-14.5); WHITE BLOOD COUNT 7.1 10^3/ul (4.8-10.8)
[2017-02-25] MEDS: CLOPIDOGREL 75 MG TAB PO SCH (09:57)
[2017-02-25] MEDS: METOPROLOL 25 MG TAB PO SCH (09:57)
[2017-02-25 10:04] LABS: CALCIUM 8.4 mg/dl (8.4-10.2); CREATININE 2.77 mg/dl (0.61-1.24); POTASSIUM 4.5 mmol/L (3.5-5.1)
--- NOTE | 2017-02-25 10:21 | CONS ---
Date/Time of Note Date/Time of Note DATE: 02/25/17 TIME: 10:20 Assessment/Plan Assessment/Plan Additional Assessment/Plan 1.Bradycardia-resolved since correction in K - no Class I indication for pacer 2.Hypotension-improved. Echo NL EF this admit - bert now 3.RBBB - stable 4.REnal failure - HD as needed per renal team, 5.Hyperkalemia-improved 4.2 today 6. cad - no active CP now Consultation Date/Type/Reason Admit Date/Time Feb 22, 2017 at 15:38 Initial Consult Date 02/22/17 Type of Consultation: cardiology Referring Provider: BASILIO TRUJILLO 24 HR Interval Summary Free Text/Dictation NO acute events - BP in good range - no CP - no new jillian episodes ROS: No fever, no chills, no nausea, no vomiting, no diarrhea/constipation No recent weight changes No chest pain, no PND, no orthopnea No dizziness, blurred vision No thirst, no heat or cold intolerance Exam/Review of Systems Vital Signs Vitals Vital Signs Date Time Temp Pulse Resp B/P Pulse Ox O2 Delivery O2 Flow Rate FiO2 02/25/17 08:16 96 02/25/17 07:41 97.1 18 154/71 99 02/25/17 07:33 Nasal Cannula 2.0 02/22/17 19:45 30 Intake and Output 02/24/17 02/24/17 02/25/17 14:59 22:59 06:59 Intake Total 50 ml Output Total 85 ml 50 ml Balance -85 ml 0 ml Exam General: WN/WD/NAD, AOx 1-2 HEENT: Unicetric/atraumatic/EOMI (does not follow commands) NECK: JVD elevated, no thyromegaly Lymph: no lymphadenopathy HEART: regular with no S3, II/ systolic murmur at apex LUNGS: Coarse sounds ABD: soft, NT, ND, +BS : Intact Neuro: non focal SKIN: chronic changes EXT: trace edema Results Result Diagram: 02/25/17 0842 02/25/17 0842 Results 24 hrs Laboratory Tests Test 02/24/17 11:07 02/24/17 17:33 02/24/17 21:39 02/25/17 08:09 Bedside Glucose 115 152 129 128 Test 02/25/17 08:42 White Blood Count 7.1 Red Blood Count 2.86 L Hemoglobin 8.6 L Hematocrit 29.3 L Mean Corpuscular Volume 102.4 H Mean Corpuscular Hemoglobin 30.1 Mean Corpuscular Hemoglobin Concent 29.4 L Red Cell Distribution Width 16.4 H Platelet Count 129 L Mean Platelet Volume 12.7 H Neutrophils % 62.6 Lymphocytes % 25.3 Monocytes % 9.4 Eosinophils % 2.0 Basophils % 0.4 Nucleated Red Blood Cells % 0.0 Neutrophils # 4.5 Lymphocytes # 1.8 Monocytes # 0.7 Eosinophils # 0.1 Basophils # 0.0 Nucleated Red Blood Cells # 0.0 Sodium Level 132 L Potassium Level 4.5 Chloride Level 97 Carbon Dioxide Level 28 Anion Gap 12 # Blood Urea Nitrogen 43 H Creatinine 2.77 H Glucose Level 145 # Calcium Level 8.4 Medications Medications Current Medications Dextrose (D50w Syringe) ONCE PRN IV POC BLOOD GLUCOSE <250 MG/DL Last administered on 02/22/17 14:11; Admin Dose 50 ML; Start 02/22/17 at 14:00 Ondansetron HCl (Zofran Inj) 4 mg Q6H PRN IV NAUSEA AND/OR VOMITING Last administered on 02/24/17 15:13; Admin Dose 4 MG; Start 02/22/17 at 16:30 Acetaminophen (Tylenol Tab) 650 mg Q6H PRN PO PAIN LEVEL 1-3 OR FEVER; Start at 16:30 Acetaminophen/ Hydrocodone Bitart ([place] (5/325)) 1 tab Q6H PRN PO MODERATE PAIN LEVEL 4-6 Last administered on 02/25/17 09:58; Admin Dose 1 TAB; Start 02/22/17 at 16:30 Morphine Sulfate (morphine) 2 mg Q4H PRN IV SEVERE PAIN LEVEL 7-10 Last administered on 02/24/17 15:13; Admin Dose 2 MG; Start 02/22/17 at 16:30 Docusate Sodium (Colace) 100 mg Q12H PRN PO CONSTIPATION; Start 02/22/17 at 16: 30 Magnesium Hydroxide (Milk Of Mag) 30 ml DAILY PRN PO CONSTIPATION; Start at 16:30 Sodium Biphosphate/ Sodium Phosphate (Fleet Enema) 133 ml DAILY PRN [place] CONSTIPATION; Start 02/22/17 at 16:30 Clopidogrel Bisulfate (plaVIX) 75 mg DAILY PO Last administered on 02/25/17 09 :57; Admin Dose 75 MG; Start 02/23/17 at 09:00 Famotidine (Pepcid Iv) 20 mg DAILY IV Last administered on 02/24/17 09:02; Admin Dose 20 MG; Start 02/22/17 at 17:00 Miscellaneous Information 1 ea NOTE XX ; Start 02/22/17 at 17:00 Glucose (Glutose) 15 gm Q15M PRN PO DECREASED GLUCOSE; Start 02/22/17 at 17:00 Glucose (Glutose) 22.5 gm Q15M PRN PO DECREASED GLUCOSE; Start 02/22/17 at 17:00 Dextrose (D50w Syringe) 25 ml Q15M PRN IV DECREASED GLUCOSE; Start 02/22/17 at 17:00 Dextrose (D50w Syringe) 50 ml Q15M PRN IV DECREASED GLUCOSE; Start 02/22/17 at 17:00 Glucagon (Glucagen) 1 mg Q15M PRN IM DECREASED GLUCOSE; Start 02/22/17 at 17:00 Glucose (Glutose) 15 gm Q15M PRN BUCCAL DECREASED GLUCOSE; Start 02/22/17 at 17: 00 Multivit/Ca Carb/ B Cmplx/FA/Prenat (Ailin-Amee) 1 tab DAILY PO Last administered on 02/24/17 09:02; Admin Dose 1 TAB; Start 02/23/17 at 13:00 Zinc Sulfate (Zinc Sulfate) 220 mg DAILY PO Last administered on 02/24/17 09: 02; Admin Dose 220 MG; Start 02/23/17 at 13:00 Diagnostic Test (Pha) (Accu-Chek) 1 ea 02 XX ; Start 02/24/17 at 02:00 Metoprolol Tartrate (Lopressor) 25 mg BID PO Last administered on 02/25/17 09: 57; Admin Dose 25 MG; Start 02/24/17 at 21:00 ASHLEY EDWARD MD Feb 25, 2017 10:21
--- NOTE | 2017-02-25 14:18 | PN ---
Date/Time of Note Date/Time of Note DATE: 02/25/17 TIME: 14:00 Assessment/Plan VTE Prophylaxis VTE Prophylaxis Intervention: SCD's Lines/Catheters IV Catheter Type (from Nrs): DIALYSIS CATH Urinary Cath still in place: Yes Reason Cath still needed: other (indicate) Assessment/Plan Assessment/Plan 1. Syncope from hypotension and bradycardia, consider bradycardia is hyperkalemia related, improved 2. Recurrent hyperkalemia, likely due to acute on chronic renal failure, resolved, needs to stop KCL and benicar 3. Acute on chronic renal failure, on HD through Ashvin catheter 4. Possible myeloma, needs to check with [facility] for bone marrow biopsy result 5. Diabetes:A1c = 8.5, continue sliding scale insulin 6. CAD - with history of CAD with PCI - echocardiogram showed normal ejection fraction 65%, continue Plavix 7. DJD: Continue current pain medications as needed 8. BPH, flomax 9. DVT prophylaxis: SCD's/Plavix Subjective 24 Hr Interval Summary Free Text/Dictation no chest pain or shortness of breath Exam/Review of Systems Vital Signs Vitals Vital Signs Date Time Temp Pulse Resp B/P Pulse Ox O2 Delivery O2 Flow Rate FiO2 02/25/17 12:00 86 02/25/17 11:40 98.1 16 129/59 94 02/25/17 07:33 Nasal Cannula 2.0 02/22/17 19:45 30 Intake and Output 02/24/17 02/24/17 02/25/17 15:00 23:00 07:00 Intake Total 50 ml Output Total 65 ml 50 ml Balance -65 ml 0 ml Exam Constitutional: alert, oriented, well developed Psych: nl mood/affect, no complaints Head: atraumatic, normocephalic Eyes: EOMI, nl conjunctiva, nl lids ENMT: nl external ears & nose, nl lips & teeth, nl nasal mucosa & septum Neck: non-tender, supple Respiratory: clear to auscultation, normal air movement, No congested cough, No crackles/rales, No diminished breath sounds, No intercostal retraction, No labored breathing, No other, No respirations, No tactile fremitus, No wheezing Cardiovascular: nl pulses, regular rate and rhythm, No S3, No S4, No bruits, No diastolic murmur, No edema, No gallop, No irregular rhythm, No jugular venous distention (JVD), No murmurs/extra sounds, No other, No rub, No systolic murmur Gastrointestinal: nl liver, spleen, non-tender, soft, No ascites, No bowel sounds, No distended, No firm, No hepatomegaly, No mass , No other, No rebound or guarding, No splenomegaly, No surgical scars, No tender Musculoskeletal: nl extremities to inspection Extremities: normal pulses, No calf tenderness, No clubbing, No cyanosis, No edema, No other, No palpable cord, No pitting pedal edema, No tenderness Neurological: MECHANICAL STRIPER II-XII intact, nl mental status, nl speech, nl strength Skin: nl turgor Results Result Diagram: 02/25/17 0842 02/25/17 0842 Results 24 hrs Laboratory Tests Test 02/24/17 17:33 02/24/17 21:39 02/25/17 08:09 02/25/17 08:42 Bedside Glucose 152 129 128 White Blood Count 7.1 Red Blood Count 2.86 L Hemoglobin 8.6 L Hematocrit 29.3 L Mean Corpuscular Volume 102.4 H Mean Corpuscular Hemoglobin 30.1 Mean Corpuscular Hemoglobin Concent 29.4 L Red Cell Distribution Width 16.4 H Platelet Count 129 L Mean Platelet Volume 12.7 H Neutrophils % 62.6 Lymphocytes % 25.3 Monocytes % 9.4 Eosinophils % 2.0 Basophils % 0.4 Nucleated Red Blood Cells % 0.0 Neutrophils # 4.5 Lymphocytes # 1.8 Monocytes # 0.7 Eosinophils # 0.1 Basophils # 0.0 Nucleated Red Blood Cells # 0.0 Sodium Level 132 L Potassium Level 4.5 Chloride Level 97 Carbon Dioxide Level 28 Anion Gap 12 # Blood Urea Nitrogen 43 H Creatinine 2.77 H Glucose Level 145 # Calcium Level 8.4 Test 02/25/17 12:21 Bedside Glucose 206 Medications Medications Current Medications Dextrose (D50w Syringe) ONCE PRN IV POC BLOOD GLUCOSE <250 MG/DL Last administered on 02/22/17 14:11; Admin Dose 50 ML; Start 02/22/17 at 14:00 Ondansetron HCl (Zofran Inj) 4 mg Q6H PRN IV NAUSEA AND/OR VOMITING Last administered on 02/24/17 15:13; Admin Dose 4 MG; Start 02/22/17 at 16:30 Acetaminophen (Tylenol Tab) 650 mg Q6H PRN PO PAIN LEVEL 1-3 OR FEVER; Start at 16:30 Acetaminophen/ Hydrocodone Bitart ([place] (5/325)) 1 tab Q6H PRN PO MODERATE PAIN LEVEL 4-6 Last administered on 02/25/17 09:58; Admin Dose 1 TAB; Start 02/22/17 at 16:30 Morphine Sulfate (morphine) 2 mg Q4H PRN IV SEVERE PAIN LEVEL 7-10 Last administered on 02/24/17 15:13; Admin Dose 2 MG; Start 02/22/17 at 16:30 Docusate Sodium (Colace) 100 mg Q12H PRN PO CONSTIPATION; Start 02/22/17 at 16: 30 Magnesium Hydroxide (Milk Of Mag) 30 ml DAILY PRN PO CONSTIPATION; Start at 16:30 Sodium Biphosphate/ Sodium Phosphate (Fleet Enema) 133 ml DAILY PRN [place] CONSTIPATION; Start 02/22/17 at 16:30 Clopidogrel Bisulfate (plaVIX) 75 mg DAILY PO Last administered on 02/25/17 09 :57; Admin Dose 75 MG; Start 02/23/17 at 09:00 Famotidine (Pepcid Iv) 20 mg DAILY IV Last administered on 02/24/17 09:02; Admin Dose 20 MG; Start 02/22/17 at 17:00 Miscellaneous Information 1 ea NOTE XX ; Start 02/22/17 at 17:00 Glucose (Glutose) 15 gm Q15M PRN PO DECREASED GLUCOSE; Start 02/22/17 at 17:00 Glucose (Glutose) 22.5 gm Q15M PRN PO DECREASED GLUCOSE; Start 02/22/17 at 17:00 Dextrose (D50w Syringe) 25 ml Q15M PRN IV DECREASED GLUCOSE; Start 02/22/17 at 17:00 Dextrose (D50w Syringe) 50 ml Q15M PRN IV DECREASED GLUCOSE; Start 02/22/17 at 17:00 Glucagon (Glucagen) 1 mg Q15M PRN IM DECREASED GLUCOSE; Start 02/22/17 at 17:00 Glucose (Glutose) 15 gm Q15M PRN BUCCAL DECREASED GLUCOSE; Start 02/22/17 at 17: 00 Multivit/Ca Carb/ B Cmplx/FA/Prenat (Ailin-Amee) 1 tab DAILY PO Last administered on 02/24/17 09:02; Admin Dose 1 TAB; Start 02/23/17 at 13:00 Zinc Sulfate (Zinc Sulfate) 220 mg DAILY PO Last administered on 02/24/17 09: 02; Admin Dose 220 MG; Start 02/23/17 at 13:00 Diagnostic Test (Pha) (Accu-Chek) 1 ea 02 XX ; Start 02/24/17 at 02:00 Metoprolol Tartrate (Lopressor) 25 mg BID PO Last administered on 02/25/17 09: 57; Admin Dose 25 MG; Start 02/24/17 at 21:00 NEMESIO VELAZQUEZ MD Feb 25, 2017 14:12
[2017-02-25] MEDS ORDERED: ALLOPURINOL 300 MG TAB PO SCH (14:30)
--- NOTE | 2017-02-25 14:41 | DS ---
Date/Time of Note Date/Time of Note DATE: 02/25/17 TIME: 14:24 Discharge Summary Admission/Discharge Info Admit Date/Time Feb 22, 2017 at 15:38 Discharge Date/Time Discharge Diagnosis 1. Syncope due to hypotension and bradycardia from hypokalemia, resolved 2. Hyperkalemia: due to acute on chronic renal failure and medication induced, stop KCL and benicar at home 3. Acute on chronic renal failure, s/p HD, follow up with nephrology 4. Diabetes:mellitus, needs to stop metformin due to renal failure, follow up with PCP to adjust insulin dosage 5. BPH, on flomax 6. CAD - with history of CAD with PCI , no chest pain 8. DJD: stable Patient Condition: Fair Hx of Present Illness 86 [place] speaking male past medical history of degenerative joint disease, type 1 diabetes, essential hypertension, gastric lymphoma, anemia, BPH presents with syncope. In the ER patient today was found to be hypotensive and bradycardic and hypoxic, along with severe metabolic acidosis. Full review of systems cannot be obtained at this time because the patient is not able to provide this, he was somewhat combative in the ER, and because of language barrier, and also family is not around presently. Most of the information is obtained from the ER documentation. His potassium was also severely elevated 8.4, he was given ER treated with kayexate, atropine, bicarb, glucose and insulin and will be transferred to icu. Kidney doctor was consulted as well and patient received Ashvin catheter for emergent dialysis to be started later today. Apparently the patient was hospitalized at [facility] and apparently refused medical follow up when he presented with hyperkalemia about one month ago per son. He is on numerous card meds including coreg, isodrdil, plavix, lasix, potassium and Benicar with insulin in addition. Hospital Course Patient was started on HD through a Ashvin catheter that corrected the hyperkalemia and resolved hypotension and bradycardia. I talked with the son regarding condition and treatment plan. I specifically informed him to stop benicar and KCl to avoid hyperkalemia. Patient and his son insist going home even I explained to them the importance of staying at least one more day to observe electrolytes and renal function without HD. They signed AMA and left hospital and they understand the risk including if hyperkalemia recurs. Patient was on metformin at home that needs to be stopped due to renal failure with Cr 2.77. Home Meds Reported Medications [Ferrous Sulfate 65MG] No Conflict Check, 65 MG PO DAILY 02/22/17 Potassium Chloride (Klor-Con) 10 Meq Tablet.sa, 10 MEQ PO BID, TAB.SA 02/22/17 [place]-3 Acid Ethyl Esters (Lovaza) 1 Gm Capsule, 1 GM PO BID, CAP 02/22/17 Insulin Detemir (Levemir Flextouch) 100 Unit/1 Ml Insuln.pen, 0 SQ QPM TAKE 15-25 UNITS QPM,SLIDING SCALE 02/22/17 Linaclotide (LINZESS) 290 Mcg Capsule, 290 MCG PO DAILY, #30 CAP 02/22/17 Sitagliptin Phos/Metformin HCl (Janumet 50-1,000 mg Tablet) 1 Each Tablet, 1 EACH PO QHS, TAB 02/22/17 Clopidogrel Bisulfate* (Clopidogrel Bisulfate*) 75 Mg Tablet, 75 MG PO DAILY, # 30 TAB 02/22/17 Tamsulosin Hcl* (Tamsulosin Hcl*) 0.4 Mg Cap.er.24h, 0.4 MG PO DAILY, CAP 02/22/17 Carvedilol* (Carvedilol*) 12.5 Mg Tablet, 12.5 MG PO BID, #60 TAB 02/22/17 Docusate Sodium* (Stool Softener*) 100 Mg Capsule, 200 MG PO DAILY, CAP 02/22/17 Olmesartan Medoxomil (Benicar) 40 Mg Tablet, 40 MG PO DAILY, #30 TAB 02/22/17 Isosorbide Mononitrate* (Isosorbide Mononitrate*) 60 Mg Tab.er.24h, 60 MG PO DAILY, TAB 02/22/17 Furosemide* (Furosemide*) 40 Mg Tablet, 40 MG PO BID, TAB 02/22/17 Famotidine* (Famotidine*) 40 Mg Tablet, 40 MG PO HS, #30 TAB 02/22/17 Amlodipine Besylate* (Norvasc*) 5 Mg Tablet, 5 MG PO DAILY, TAB 02/22/17 Allopurinol* (Allopurinol*) 300 Mg Tablet, 300 MG PO DAILY, TAB 02/22/17 Metoclopramide Hcl* (Metoclopramide Hcl*) 5 Mg Tablet, 5 MG PO TID Y for NAUSEA AND/OR VOMITING, TAB 02/22/17 Discontinued Reported Medications Ferrous Sulfate* (Ferrous Sulfate*) 325 Mg Tablet, 325 MG PO DAILY 11/24/13 Hydrocodone Bit-Acetaminophen* ([place]*) 1 Tab Tab, 1 TAB PO BID, TAB 11/24/13 Terazosin Hcl* (Terazosin Hcl*) 10 Mg Capsule, 10 MG PO HS 11/24/13 Sitagliptin* (Januvia*) 100 Mg Tablet, 100 MG PO DAILY 11/24/13 Linaclotide (LINZESS) 290 Mcg Capsule, 290 MCG PO DAILY 11/24/13 Losartan Potassium* (Cozaar*) 50 Mg Tablet, 50 MG PO Q12 05/06/12 Isosorbide Dinitrate* (Isosorbide Dinitrate*) 30 Mg Tablet, 30 MG PO DAILY 05/06/12 Carvedilol* (Carvedilol*) 3.125 Mg Tablet, 3.125 MG PO BID 11/04/11 Metformin* (Glucophage*) 500 Mg Tab, 1 TAB PO BID, 0 Refills 11/04/11 Lovastatin (Lovastatin) 40 Mg Tablet, 1 TAB PO DAILY, 0 Refills 11/04/11 Clonidine Hcl* (Clonidine Hcl*) 0.1 Mg Tab, 0.3 MG PO Q8 11/04/11 Clopidogrel Bisulfate (Plavix) 75 Mg Tablet, 1 TAB PO DAILY, 0 Refills 11/04/11 Follow-up Plan PCP, cardiology, nephrology Primary Care Provider Nida Bartlett MD Pending Labs Laboratory Tests Test 02/24/17 17:33 02/24/17 21:39 02/25/17 08:09 02/25/17 08:42 Bedside Glucose 152mg/dL (70-220) 129mg/dL (70-220) 128mg/dL (70-220) White Blood Count 7.110^3/ul (4.8-10.8) Red Blood Count 2.8610^6/ul (4.70-6.10) Hemoglobin 8.6g/dl (14.0-18.0) Hematocrit 29.3% (42.0-52.0) Mean Corpuscular Volume 102.4fl (82.0-101.0) Mean Corpuscular Hemoglobin 30.1pg (29.0-33.0) Mean Corpuscular Hemoglobin Concent 29.4g/dl (32.0-37.0) Red Cell Distribution Width 16.4% (11.5-14.5) Platelet Count 06264^3/UL (140-415) Mean Platelet Volume 12.7fl (7.4-10.4) Neutrophils % 62.6% (39.0-77.0) Lymphocytes % 25.3% (15.0-51.0) Monocytes % 9.4% (0.0-11.0) Eosinophils % 2.0% (0.0-7.0) Basophils % 0.4% (0.0-2.0) Nucleated Red Blood Cells % 0.0/100WBC (0.0-0.0) Neutrophils # 4.510^3/ul (1.6-7.5) Lymphocytes # 1.810^3/ul (0.8-2.9) Monocytes # 0.710^3/ul (0.3-0.9) Eosinophils # 0.110^3/ul (0.0-0.5) Basophils # 0.010^3/ul (0.0-0.1) Nucleated Red Blood Cells # 0.010^3/ul (0.0-0.0) Sodium Level 132mmol/L (135-144) Potassium Level 4.5mmol/L (3.5-5.1) Chloride Level 97mmol/L (97-110) Carbon Dioxide Level 28mmol/L (21-31) Anion Gap 12 (8-16) Blood Urea Nitrogen 43mg/dl (7-20) Creatinine 2.77mg/dl (0.61-1.24) Glucose Level 145mg/dl (70-220) Calcium Level 8.4mg/dl (8.4-10.2) Test 02/25/17 12:21 Bedside Glucose 206mg/dL (70-220) NEMESIO VELAZQUEZ MD Feb 25, 2017 14:34
[2017-02-25 18:46] LABS: ABNORMAL PROTEIN BAND 1 3.4 g/dL (NONE DETECTED); ALBUMIN 4.4 g/dL (3.8-4.8)
[2017-02-25] MEDS ORDERED: ATORVASTATIN 20 MG TAB PO SCH (21:00)
[2017-02-25] MEDS ORDERED: TAMSULOSIN (SR) 0.4 MG CAP PO SCH (21:00)
== END 2017-02-25 16:15 | disposition home or self-care (01) | DRG 308 ==
LOC: E/R 12:39 → ICU 15:38 → MS4 02-24 11:39
PROVIDERS: ADMIT Hospitalist; ATTEND Hospitalist
PROC: 06HY33Z Insertion of Infusion Device into Lower Vein, Percutaneous Approach (ICD-10-PCS; principal; 2017-02-22)
PROC: 5A1D60Z (ICD-10-PCS; 2017-02-22)
DX: I49.5 Sick sinus syndrome (principal); N18.6 End stage renal disease; N17.9 Acute kidney failure, unspecified; C90.00 Multiple myeloma not having achieved remission; E87.2 Acidosis; I95.9 Hypotension, unspecified; I50.9 Heart failure, unspecified; E10.22 Type 1 diabetes mellitus with diabetic chronic kidney disease; E87.5 Hyperkalemia; R55 Syncope and collapse; N40.0 Benign prostatic hyperplasia without lower urinary tract symptoms; D64.9 Anemia, unspecified; I25.10 Atherosclerotic heart disease of native coronary artery without angina pectoris; M19.90 Unspecified osteoarthritis, unspecified site; Z79.4 Long term (current) use of insulin
CPT/HCPCS: 36415; 71010; 76775; 76937; 80048; 80053; 80061; 81001; 81003; 82550; 82553; 82962; 83036; 83735; 83880; 84100; 84132; 84155; 84165; 84439; 84443; 84484; 85025; 85610; 85730; 87081; 90935; 92610; 93005; 93306; 94664; 96372; 96374; 96375; 97162; J0461; J0610; J1610; J1630; J1815; J1940; J2060; J2270; J2405; J3475; J7040; P9047